=== PATIENT | female | born 1955 | race Caucasian/White ===

== ENCOUNTER 2019-01-30 00:40 | Outpatient (CLI) | payer OTHER, SELFPAY ==
--- NOTE | 2019-01-30 07:15 | DI.US_ITS ---
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 There are no priors for comparison. The liver is normal in size measuring 15.5 cm. in length. There is a normal smooth contour. There is an echogenic solid mass at the dome of the liver measuring 2.6 by 2.4 by 2.2 cm. There is some internal blood flow present. No other hepatic mass is seen. The liver otherwise shows normal echogenicity. Portal venous flow is normal. There is no perihepatic ascites present. IMPRESSION: 1. 2.6 cm. solid echogenic mass in the dome of the liver. This may represent a benign lesion such as a hemangioma. CT scan of the abdomen using the hemangioma protocol should be considered. 2. Otherwise normal appearance of the liver. Normal portal venous flow.
== END 2019-01-30 01:00 ==
PROVIDERS: PCP Family Medicine; Visit Provider Internal Medicine
DX: E88.01 Alpha-1-antitrypsin deficiency (principal); K76.89 Other specified diseases of liver
CPT/HCPCS: 76705

== ENCOUNTER 2019-02-19 08:38 | Outpatient (CLI) | payer OTHER, SELFPAY ==
[2019-02-19 13:54] LABS: CREATININE 0.97 mg/dL (0.55-1.02); Estimated GFR 57.64 (mL/min/1.73m2)
--- NOTE | 2019-02-19 14:17 | DI.CT_ITS ---
SYMPTOMS/DIAGNOSIS: EVALUATE SOLID LIVER MASS SEEN ON ULTRASOUND; CHRONIC OBSTRUCTIVE PULMONARY DISEASE, J44.[address]: CT examination of the abdomen was performed utilizing hemangioma protocol with intravenous infusion of 100 cc of Omnipaque 350. Arterial phase, venous phase and delayed phase imaging were obtained. There is an approximately 24 mm in greatest diameter low attenuation right hepatic lobe lesion as noted on ultrasound. This shows marked nodular peripheral enhancement on arterial phase imaging with progressive enhancement towards the center of the lesion on venous phase and delayed phase imaging with homogeneous enhancement on delayed phase. The findings as described are consistent with hepatic hemangioma pattern. No additional hepatic lesions seen. Spleen and pancreas appear intact. Gallbladder and bile ducts are CT normal. Abdominal aorta is of normal diameter and no major vascular abnormality is seen. No abdominal or pelvic adenopathy seen. Adrenals and kidneys are unremarkable. Visualized lung bases show severe emphysema. CONCLUSION: Findings consistent with right lobe hepatic hemangioma.
[2019-02-19] MEDS: Breeza Beverage 473 ML BTL PO (14:23)
[2019-02-19] MEDS: Omnipaque 350 MG/ML 50 ML BTL PO (14:23)
[2019-02-19] MEDS: Omnipaque 350 MG/ML 100 ML BTL IV (14:27)
== END 2019-02-19 08:58 ==
PROVIDERS: PCP Family Medicine; Visit Provider Internal Medicine
DX: R16.0 Hepatomegaly, not elsewhere classified (principal); D18.03 Hemangioma of intra-abdominal structures; E88.01 Alpha-1-antitrypsin deficiency; J44.9 Chronic obstructive pulmonary disease, unspecified
CPT/HCPCS: 36415; 74160; 82565; J3490; Q9967

== ENCOUNTER 2019-05-22 00:19 | Outpatient (CLI) | payer OTHER, SELFPAY ==
[2019-05-22 11:27] LABS: Absolute Basophil Count 0.05 k/cumm (0.0-0.2); Absolute Eosinophil Count 0.17 k/cumm (0.0-0.7); Absolute Monocyte Count 0.69 k/cumm (0.11-0.7); Absolute Neutrophil Count 5.37 k/cumm (1.2-6.7); Basophils % 0.6; HCT 42.1 % (36.0-46.0); HGB 13.9 g/dL (12.0-15.5); Lymphocytes % 25.1; Mean Corpuscular Hemoglobin 31.3 pg (27.0-33.0); Mean Corpuscular Volume 94.8 fL (80-95); Mean Platelet Volume 8.5 fL (8.0-11.0); Monocytes % 8.2; Neutrophils % 64.1; Platelet Count 441 x1000/uL (130-400); RBC 4.44 m/cumm (4.00-5.20); RBC Distribution Width 13.1 % (11.7-14.6); White Blood Cell Count 8.38 k/cumm (4.4-10.8)
[2019-05-22 12:08] LABS: Iron 126 ug/dL (50-170); Total Iron Binding Capacity 262 ug/dL (250-450); Transferrin Sat 48 % (15-50)
[2019-05-22 12:21] LABS: ALT 27 U/L (14-59); AST 21 U/L (15-37); Albumin 3.9 g/dL (3.4-5.0); Alkaline Phosphatase 70 U/L (46-116); Anion Gap 7.4 mmol/L (3-11); BUN 12 mg/dL (7-18); Bilirubin, Total 0.5 mg/dL (0.2-1.0); CO2 30.6 mmol/L (21.0-32.0); CREATININE 0.94 mg/dL (0.55-1.02); Calcium 9.3 mg/dL (8.5-10.1); Chloride 104 mmol/L (98-107); Estimated GFR 59.58 (mL/min/1.73m2); Ferritin 147 ng/mL (8-252); Glucose 85 mg/dL (74-106); Potassium 4.7 mmol/L (3.5-5.1); Sodium 142 mmol/L (136-145); Total Protein 7.1 g/dL (6.4-8.2)
== END 2019-05-22 00:39 ==
PROVIDERS: PCP Family Medicine; Visit Provider Family Medicine
DX: R53.83 Other fatigue (principal); E04.1 Nontoxic single thyroid nodule; E88.01 Alpha-1-antitrypsin deficiency; R06.02 Shortness of breath; J44.9 Chronic obstructive pulmonary disease, unspecified; C44.92 Squamous cell carcinoma of skin, unspecified
CPT/HCPCS: 36415; 80053; 82728; 83540; 83550; 84443; 85025

== ENCOUNTER 2019-09-03 17:09 | Outpatient (CLI) | payer OTHER, SELFPAY ==
[2019-09-03 18:29] VITALS: PULSE 114; PULSE 117; PULSE 121; PULSE 122; RESP 20; RESP 22; RESP 26; RESP 28; RESP 32; O2SAT 86; O2SAT 91; O2SAT 93; O2SAT 95
== END 2019-09-03 17:29 ==
PROVIDERS: PCP Family Medicine; Visit Provider Family Medicine
DX: J44.9 Chronic obstructive pulmonary disease, unspecified (principal); E88.01 Alpha-1-antitrypsin deficiency
CPT/HCPCS: 94618

== ENCOUNTER 2020-02-17 01:07 | Outpatient (CLI) | payer OTHER, SELFPAY ==
--- NOTE | 2020-02-17 | DI.CT_ITS ---
EXAM: CT CHEST WO CLINICAL HISTORY: LUNG DISEASE J44.9, F/U LUNG NODULE TECHNIQUE: Imaging Protocol: Axial computed tomography images with coronal and sagittal reformatted images were created and reviewed CONTRAST MATERIAL: Noncontrast COMPARISON: CT CT CHEST WO CONTRAST from 02/12/2019 from [facility]. FINDINGS: Exam is mildly limited by patient motion. Tracheobronchial tree: Patent where visualized. Mediastinum and Sarahy: No dominant adenopathy or fluid collection. Pulmonary parenchyma: Severe emphysematous changes are noted throughout. There has been no change in an ovoid density in the left upper lobe with central calcification. The findings are consistent wit h an area of scarring or granuloma. No new nodules are identified. There are no infiltrates. Pleura: No effusion or pneumothorax. Heart: The heart is not dilated. Mild coronary artery calcifications are seen. Prominence of the pulm onary arteries, consistent with pulmonary hypertension. Aorta: Thoracic aorta non-dilated. Upper abdomen: Stable low-density area in the upper portion of the liver. Lesion was felt to repres ent a hemangioma previous imaging. Lymph nodes: Within normal limits. Bones: Normal. Soft tissues: Unremarkable. IMPRESSION: Stable appearance of left upper lobe nodule, consistent with area of scarring or granuloma. Severe u nderlying emphysematous changes. RADIATION DOSE DELIVERED: Total DLP DATA REPOSITORY: All CT scans at this facility are submitted to the National Radiology Data Registry (NRDR) Dose Index Registry (DIR) with the [employer] (A[employer]). RADIATION OPTIMIZATION: All CT scans at this facility use at least one of these dose optimization te chniques: automated exposure control; mA and/or kV adjustment per patient size (includes targeted exa ms where dose is matched to clinical indication); or iterative reconstruction.
== END 2020-02-17 01:27 ==
PROVIDERS: PCP Family Medicine; Visit Provider Internal Medicine
DX: J44.9 Chronic obstructive pulmonary disease, unspecified (principal); R91.1 Solitary pulmonary nodule
CPT/HCPCS: 71250

== ENCOUNTER 2020-11-21 11:47 | Outpatient (REF) | payer OTHER, SELFPAY ==
[2020-11-21 12:59] LABS: Abs Immature Grans 0.01 10^3/uL (0.0-0.06); Absolute Basophil Count 0.06 10^3/uL (0.0-0.2); Absolute Eosinophil Count 0.07 10^3/uL (0.0-0.7); Absolute Lymphocyte Count 1.92 10^3/uL (1.2-3.4); Absolute Monocyte Count 0.54 10^3/uL (0.1-0.8); Absolute Neutrophil Count 4.43 10^3/uL (1.2-6.7); Basophils % 0.9; HGB 15.2 g/dL (11.2-15.7); Immature Grans % 0.1; Lymphocytes % 27.3; MCH 31.5 pg (27.0-33.0); MCHC 32.3 % (32.0-36.0); MCV 97.3 fL (80-95); MPV 9.1 fL (8.0-11.0); Monocytes % 7.7; Nucleated RBC 0 %; Platelet Count 418 10^3/uL (130-400); RBC 4.83 10^6/uL (3.93-5.22); RDW 12.3 % (11.7-14.6); RDW-SD 44.2 fL; WBC 7.03 10^3/uL (4.4-10.8)
[2020-11-21 13:06] LABS: Iron 134 ug/dL (50-170); Total Iron Binding Capacity 277 ug/dL (250-450); Transferrin Sat 48 % (15-50)
[2020-11-21 13:22] LABS: ALT 33 U/L (14-59); AST 23 U/L (15-37); Albumin 4.3 g/dL (3.4-5.0); Alkaline Phosphatase 84 U/L (46-116); Anion Gap 8.3 mmol/L (3-11); BUN 17 mg/dL (7-18); Bilirubin, Total 0.5 mg/dL (0.2-1.0); CO2 30.7 mmol/L (21.0-32.0); CREATININE 0.7 mg/dL (0.55-1.02); Chloride 104 mmol/L (98-107); Ferritin 184 ng/mL (8-252); Glucose 95 mg/dL (74-106); Potassium 4.8 mmol/L (3.5-5.1); Sodium 143 mmol/L (136-145); TSH 2.04 uIU/mL (0.36-3.74); Total Protein 7.9 g/dL (6.4-8.2)
[2020-11-21 13:30] LABS: Amylase 55 U/L (25-115); Lipase 114 U/L (73-393)
== END 2020-11-21 11:48 | disposition home or self-care (01) ==
LOC: NCHCN 11:47
PROVIDERS: PCP Family Medicine; Visit Provider Family Medicine
DX: R10.9 Unspecified abdominal pain (principal); K62.5 Hemorrhage of anus and rectum; E04.1 Nontoxic single thyroid nodule
CPT/HCPCS: 80053; 83690; 82150; 82728; 83540; 83550; 84443; 85025

== ENCOUNTER 2020-11-23 00:45 | Outpatient (CLI) | payer OTHER, SELFPAY ==
--- NOTE | 2020-11-23 07:00 | DI.RAD_ITS ---
Exam(s) RF BARIUM SWALLOW EXAM: RF BARIUM SWALLOW CLINICAL HISTORY: dysphagia,R13.10 TECHNIQUE: 2D and realtime digital imaging was performed. CONTRAST MATERIAL: Oral barium Oral water soluble contrast was administered. COMPARISON: No exams were available for comparison FINDINGS: This esophagram was performed both standing and recumbent using both single and double-contrast techn ique. Swallowing mechanism is grossly intact. There was no aspiration evident on this study. There is a s lightly hypertense upper esophageal sphincter noted. There is no Zenker's diverticulum. No obvious fixed lesions evident in the esophagus. Esophagus is not dilated. Distally there is no evidence of Schatzki ring nor fixed lesion or hiatal hernia. There is no obvious reflux demonstrated on today's study. IMPRESSION: Slightly hypertense upper esophageal sphincter. No fixed lesions in the esophagus and GE junction re gion. No hiatal hernia. No obvious GE reflux demonstrated. RADIATION DOSE DELIVERED: Destinyr= mGy
[2020-11-23] MEDS: Barium Sulfate 60% W/V 355 ML BTL PO (09:45)
[2020-11-23] MEDS: Simethicone/Sod Bicarb/Cit Ac, 4 gram PACKET 1 PACKET PO (09:46)
== END 2020-11-23 01:05 ==
PROVIDERS: PCP Family Medicine; Visit Provider Family Medicine
DX: K22.8 Other specified diseases of esophagus (principal)
CPT/HCPCS: 74221; J3490

== ENCOUNTER → 2021-01-12 11:18 | Outpatient (BNVA) | payer OTHER, SELFPAY | PROVIDERS: PCP Family Medicine; Referring Provider Family Medicine; Visit Provider Surgery | DX: R13.10 Dysphagia, unspecified (principal); K52.9 Noninfective gastroenteritis and colitis, unspecified; J44.9 Chronic obstructive pulmonary disease, unspecified; Z87.891 Personal history of nicotine dependence | CPT/HCPCS: 99202; 99203 ==

== ENCOUNTER 2021-01-20 10:59 | Day surgery (SDC) | payer OTHER, SELFPAY ==
--- NOTE | 2021-01-20 10:17 | PDOC.DSDIS_ITS ---
Discharge Plan Disposition Patient Disposition: HOME Condition: Good Discharge Details Reason For Visit: colon scope Attending Provider: Olga Lidia Cordova Primary Care Provider: Nisreen Marte Home Meds and New Rx's Prescriptions: Continued multivitamin Tablet 1 tab PO DAILY RF: 0 ascorbate calcium (vitamin C) 500 mg tablet 500 mg PO BID RF: 0 Hx-Q5-tkl-natk-ivw-hppw-bor 1 EACH tablet 1 ea PO BID RF: 0 PRESERVISION SOFTGEL 1 EACH capsule 1 ea PO DAILY RF: 0 magnesium oxide 250 MG tablet 250 mg PO DAILY RF: 0 melatonin 10 MG tablet 10 mg PO HS RF: 0 pravastatin 10 mg tablet 10 mg PO DAILY Qty: 90 RF: 4 zolpidem 5 mg tablet 5 mg PO HS PRN (Reason: insomnia) Qty: 90 RF: 2 Trelegy Ellipta 100-62.5-25 mcg blister with device 1 inh IH DAILY Qty: 180 RF: 4 valacyclovir 500 mg tablet 500 mg PO DAILY Qty: 90 RF: 4 Discharge Instructions Instructions: Rectal Prolapse (GEN) Additional Instructions: DSU Colonoscopy Post- Op Instructions Instructions for Everyone who is given Anesthesia: For your safety, please do the following for the next twenty-four (24) hours: *Do Not operate a motor vehicle (car, truck, motorcycle, etc.) *Do Not drink alcoholic beverages or use any recreational drugs for the first 24 hours or while taking pain medications. The medications in your body may have a reaction that can be dangerous. *Do Not make any important decisions or sign any important papers. Findings: Rectal prolapse Follow up:w/ PCP Consider referral to colo-rectal surgery at [facility] if this impairs your daily living. 1. No lifting over 20 pounds or strenuous activity for the first 24 hours after your procedure. After 24 hours there are no restrictions on your activity but you may feel fatigued for a few days. 2. After you arrive home you may have a light meal and return to your normal diet as you can tolerate it without feeling sick to your stomach. 3. You may have a bloated, gaseous feeling in your belly (abdomen) after a colonoscopy. Passing gas and belching will help. Walking or lying down on your left side with your knees flexed may relieve the discomfort. Call the office at [phone] (Office) or [phone] (Hospital) right away if you notice any of the following: a.Vomiting of blood or ?coffee ground stools?. b.Rectal bleeding 1Tbsp, blood clots or continuous bleeding. c.Severe belly (abdominal) pain. d.A hard distended belly (abdomen) and an inability to pass gas. 4. Please don?t expect to have a normal BM (bowel movement) for 2-3 days after your procedure. 5. If there are questions regarding the findings of your procedure, please contact your doctor 6. If you are unable to contact your doctor with a problem, contact the hospital at [phone]. 7. Continue all your regular medications unless directed otherwise. I understand the above instructions and have no questions. Signature of Patient or Adult Escort Name of Responsible Adult Escort Signature of Nurse Date/Time Activity:: see above Diet:: see above Discharge Orders Discharge Orders: Discharge Order (Routine); Ordered 01/19/21 Ordered By: Olga Lidia Cordova DS: Diagnosis Discharge Diagnosis (1) Llfii-0-tbkmrholrkn deficiency: Status: Acute (2) Incomplete rectal prolapse: Status: Acute (3) Pelvic floor weakness in female: Status: Acute
--- NOTE | 2021-01-20 10:17 | W.COLOREPORT ---
Date of service: 01/20/21 Time of Service: 10:17 Colonoscopy Report Date of procedure: 01/20/21 Pre-op diagnosis general: ddiarrhea and rectal bleeding Post-op diagnosis procedure note: other (partial rectal prolaspse ) Surgeon: Olga Lidia Cordova Anesthesia Type: General:No Airway Estimated blood loss (mL): 1 Pathology: other Complications: None Disposition: same day Prep: Miralax/Dulcolax Retraction Time: 9 Procedure Description: After informed consent was obtained the patient was taken to the procedure room and placed in a left decubitous position. Monitors were applied and a time out was done. The patients name, date of , procedure, allergies to medications and metal in their body was reviewed. The patient was then sedated. Once sedated and comfortable a rectal exam was done. Incomplete rectal prolaspe from 1-6oclock potion. No enterocele. She has significant vaginal atrophy and laxity of the tissues of the pelvic floor. Internal exam revealed a decreased sphincter tone and no palpable masses. The scope was then introduced and retrofelexed. no internal hemorrhoids were identified. The scope was then advanced to the cecum w/out difficulty. The TI and appendiceal orifice were identified. The prep was good. The scope was then slowly retracted over 9 minutes back into the rectum. There were no polyps, AVMs, or diverticula apparent. Biopsies were taken at cecum, 80 cm, 30 cm and the rectum, because of chronic diarrhea. All specimens are retrieved and no bleeding is noted. The scope was removed and the patient was woken up and taken back to Same day surgery in stable condition. The patient tolerated the procedure well and there were no immediate complications. Follow up: The patient does not require any further screening colonoscopies, unless they develop changes in bowel habits or other new gastrointestinal complaints.
[2021-01-20 11:18] VITALS: BP 137/88; PULSE 96; RESP 18; TEMP 36.7; O2SAT 95
[2021-01-20] MEDS: Lactated Ringers 1,000 ML 80 ML IV (11:43)
--- NOTE | 2021-01-20 12:12 | W.ANESPRE ---
General Info Date of Service Date Performed: 01/20/21 Height: 5 ft 1 in Weight: 43.9 kg Body Mass Index (BMI): 18.3 Surgical Procedure: Operation Date: 01/20/21 12:05 Proposed Procedures Side Surgeon richard Cordova, DO Meds Allergies and Home Medications Allergies Allergy/AdvReac Type Severity Reaction Status Date / Time No Known Allergies Allergy Unverified 01/20/21 11:09 Home Medication Medication Instructions Recorded Uq-R0-bhc-dobs-app-dcvd-bor 1 ea PO BID 08/13/12 Preservision Softgel 1 ea PO DAILY 08/13/12 magnesium oxide 250 mg PO DAILY 03/20/17 melatonin 10 mg PO HS 03/20/17 pravastatin 10 mg tablet 10 mg PO DAILY #90 tab 03/21/20 zolpidem 5 mg tablet 5 mg PO HS PRN #90 mg 11/25/20 fluticasone fur. 100 mcg-umeclid 1 inh IH DAILY #180 each 12/27/20 62.5 mcg-vilant 25 mcg inhalat.powder valacyclovir 500 mg tablet 500 mg PO DAILY #90 tab 12/27/20 ascorbate calcium (vitamin C) 500 500 mg PO BID 01/12/21 mg tablet multivitamin 1 tab PO DAILY 01/12/21 Current Visit Medications: Current Medications Generic Name Dose Route Start Last Admin Trade Name Freq PRN Reason Stop Dose Admin Hyoscyamine Sulfate 0.125 mg 01/19/21 18:08 Hyoscyamine 0.125 Mg Sl/Oral/Chew SL DIRECTED PRN Ringer's Solution 1,000 mls @ 80 mls/hr 01/20/21 06:00 01/20/21 11:43 IV 02/18/21 23:59 80 mls/hr INFUSION NIKI Administration IV Miscellaneous Supplies 1 each 01/20/21 06:00 Iv Access IV 02/18/21 23:59 DIRECTED NIKI Ondansetron HCl 4 mg 01/19/21 18:08 Ondansetron 4 Mg/2 Ml Vial IVP Q4H PRN PRN Nausea / Vomiting Sodium Chloride 0 ml 01/20/21 06:00 Normal Saline Flush 10 Ml Syr IV 02/18/21 23:59 PRN PRN Sodium Chloride 0 ml 01/20/21 06:00 Normal Saline 10 Ml Vial IJ 02/18/21 23:59 DIRECTED PRN Sterile Water 0 ml 01/20/21 06:00 Water,Injection,Sterile 10 Ml Vial IJ 02/18/21 23:59 DIRECTED PRN PFSH Active Problems Active Problems: Problem Status Onset Code Jonfk-3-mpicflqsgtz deficiency 02/10/14 E88.01 Depressive disorder F32.9 Herpes simplex B00.9 Hyperlipidemia 09/01/12 E78.5 Imbalance 02/28/17 R26.89 Insomnia G47.00 Osteoporosis M81.0 Squamous cell carcinoma 01/23/16 C44.92 Thyroid nodule 05/24/16 E04.1 Vertigo 05/24/16 R42 Pain of hand M79.643 Status post laparoscopic hysterectomy Z90.710 Premature beats I49.49 History of tobacco use Z87.891 Dermatitis L30.9 Acquired trigger finger 05/11/13 M65.30 Dysphagia R13.10 Chronic diarrhea of unknown origin K52.9 COPD (chronic obstructive pulmonary disease) J44.9 Medical History Medical History (Updated 01/20/21 @ 11:08 by Nitesh Juan) COPD (chronic obstructive pulmonary disease) High cholesterol Surgical History Surgical History Colonoscopy - IV Sedation 2010; neg H/O shoulder surgery (~1979) Hysterectomy, Laproscopic Has ovaries Tobacco Smoking/Tobacco Use Status: Former Tobacco Use Tobacco: How many years used: 20 Passive smoking exposure: Yes Second hand exposure: Yes Alcohol Alcohol Intake: former Substance Use Substance use: Never Substance use type: does not use Vital Signs and Lab Results Vital Signs Most Recent Vital Signs in EMR: Most Recent Vital Signs Temp Pulse Resp BP Pulse Ox 36.7 C 96 H 18 137/88 95 01/20/21 11:18 01/20/21 11:18 01/20/21 11:18 01/20/21 11:18 01/20/21 11:18 Lab Results Blood Type / Crossmatch: No Data to Display Complete Blood Count: No Data to Display Complete Metabolic Panel: No Data to Display Liver Function Panel: No Data to Display Coagulation Panel: No Data to Display Cardiac Panel: No Data to Display Arterial Blood Gas: No Data to Display Venous Blood Gas: No Data to Display Pancreas Panel: No Data to Display Thyroid Panel: No Data to Display Infectious Disease: No Data to Display Blood Cultures: No Data to Display Toxicology Panel: No Data to Display Anesthesia Assessment and Plan Anesthesia History Personal History: No History of Anesthesia Complications Family History: No Family History of Anesthesia Complications Exercise Tolerance Exercise Tolerance: Metabolic Equivalents<4 Pertinent Negatives Pertinent Negatives: No Symptoms of GERD, No Major Cardiovascular Symptoms or Complaints and No History of CVA/TIA Cardiac & Pulmonary Exam Cardiac Exam: Normal S1/S2 Heart Sounds Pulmonary Exam: Clear Bilateral Breath Sounds Airway Exam Known Difficult Airway: No Mallampati Class: 2 Mouth Opening: Narrow (< 3cm) Thyromental Distance: Greater than 3 cm Neck Range of Motion: Full ROM Neck Circumference: Normal Teeth Condition: Normal Dentition and Removable Dentures/Plates Lower ASA Classification ASA Score: ASA 3 Emergency Case?: No NPO Status NPO Status: NPO Clears >2 hours, Solids >8 hours Anesthesia Plan Resuscitation Status: Full Code Anesthesia Technique: General Anesthesia Airway Planned: Natural Airway Monitors Used: Standard Monitors
[2021-01-20 12:16] VITALS: BMI 18.3
--- NOTE | 2021-01-20 13:37 | BOWEL_PTH ---
PATIENT: Mariah Nobles LOC: [facility] U#:[id number] AGE/SX: 65/F ROOM: RE01/20/[address]: Olga Lidia Cordova : 1955 BED: DIS: 01/20/2021 SPEC #: [id number] RECD: 01/20/21 16:40 STATUS: CARLOS REPhilippe #: [id number] RENÉ: 01/20/21 13:[address]: Olga Lidia Cordova DEPT: Surgical Specimen RECD BY: Temi Thakkar ENTERED: 01/20/21 16:41 SP TYPE: Bowel OTHR DR: Nisreen Marte MD Tissues: 1 - BIOPSY BOWEL 2 - BIOPSY BOWEL 3 - BIOPSY BOWEL 4 - BIOPSY BOWEL Procedures: SPECIAL STAIN 2 GROSS AND MICRO LEVEL 4 Comments: [id number]
[2021-01-20 13:50] VITALS: BP 121/82; PULSE 104; RESP 14; TEMP 36.6; O2SAT 95
--- NOTE | 2021-01-20 13:52 | W.ANESPOSTOP ---
Postoperative Evaluation Date, Time and Location Date Performed: 01/20/21 Time Performed: 13:52 Patient Location: Day Surgery Unit Vital Signs Most Recent Imported Vital Signs: Most Recent Vital Signs Temp Pulse Resp BP Pulse Ox 36.7 C 96 H 18 137/88 95 01/20/21 11:18 01/20/21 11:18 01/20/21 11:18 01/20/21 11:18 01/20/21 11:18 Most Recent Manually Entered Vital Signs: Adult Blood Pressure: 121/82 Heart Rate: 106 Respirations: 12 Oxygen Saturation (%): 99 Temperature (C): 36.3 C Pain Score (0-10 Scale): 0 Pain Score Most Recent Pain Score: Most Recent Pain Score Pain Level 0 01/20/21 11:18 Assessment Mental Status: Awake (Alert & Oriented to Patient Baseline) Airway and Respiratory Function: Patent airway with normal (patient baseline) respiratory exam Cardiovascular Function: Hemodynamically Stable Hydration Status: Adequately Hydrated Nausea & Vomiting: No Nausea or Vomiting Pain: Pt. Denies Any Pain Peripheral Nerve Block: Patient did not receive a nerve block
[2021-01-20 13:56] VITALS: BP 121/82; PULSE 106; RESP 12; TEMPC 36.3; O2SAT 99
[2021-01-20 14:20] VITALS: BP 145/88; PULSE 99; RESP 16; TEMP 36.5; O2SAT 93
== END 2021-01-20 14:45 | disposition home or self-care (01) ==
PROVIDERS: PCP Family Medicine; Visit Provider Surgery
PROC: 0DJD8ZZ Inspection of Lower Intestinal Tract, Via Natural or Artificial Opening Endoscopic (ICD-10-PCS; CPT 45378; principal; 2021-01-20 12:00)
DX: K62.5 Hemorrhage of anus and rectum (principal); K62.3 Rectal prolapse; R19.7 Diarrhea, unspecified; E88.01 Alpha-1-antitrypsin deficiency
CPT/HCPCS: 45380; 88305; 88313; J2001

== ENCOUNTER 2021-01-29 17:40 | Emergency (ER) | payer OTHER, SELFPAY ==
--- NOTE | 2021-01-29 17:45 | DI.RAD_ITS ---
Exam(s) XR WRIST LT LIMITED EXAM: XR WRIST LT LIMITED CLINICAL HISTORY: Fall, Swelling R/O fracture. TECHNIQUE: 2D digital imaging was performed. COMPARISON: No exams were available for comparison FINDINGS: There is a mildly comminuted and impacted fracture of distal radius. Mild dorsal There is also fracture of the ulnar styloid process. Scapholunate distance is normal. No obvious ca rpal dislocation. IMPRESSION: Fractures of distal radius and ulnar styloid. DATA REPOSITORY: RADIATION DOSE DELIVERED:
--- NOTE | 2021-01-29 17:45 | DI.RAD_ITS ---
Exam(s) XR HIP LT COMPLETE AP PELVIS EXAM: XR HIP LT COMPLETE AP PELVIS CLINICAL HISTORY: Fall R/O Fracture. TECHNIQUE: 2D digital imaging was performed. COMPARISON: No exams were available for comparison FINDINGS: There is no evidence of fracture of the pelvis and hips. Sacroiliac joints and symphysis pubis appea r unremarkable. IMPRESSION: No fracture evident. DATA REPOSITORY: RADIATION DOSE DELIVERED:
[2021-01-29 17:46] VITALS: BP 172/89; PULSE 111; RESP 20; TEMP 36.7; O2SAT 92
--- NOTE | 2021-01-29 17:54 | ED.GENADUL_ITS ---
Discharge Plan Disposition Patient Disposition: HOME Condition: Stable Discharge Details Clinical Impression: Fracture of left wrist, Fall (on) (from) other stairs and steps, initial encounter Primary Care Provider: Nisreen Marte ED Provider: Rosy Lundy Home Meds and New Rx's Prescriptions: No Action multivitamin Tablet 1 tab PO DAILY RF: 0 ascorbate calcium (vitamin C) 500 mg tablet 500 mg PO BID RF: 0 Qa-P9-hob-mkod-opy-xxkw-bor 1 EACH tablet 1 ea PO BID RF: 0 PRESERVISION SOFTGEL 1 EACH capsule 1 ea PO DAILY RF: 0 magnesium oxide 250 MG tablet 250 mg PO DAILY RF: 0 melatonin 10 MG tablet 10 mg PO HS RF: 0 pravastatin 10 mg tablet 10 mg PO DAILY Qty: 90 RF: 4 zolpidem 5 mg tablet 5 mg PO HS PRN (Reason: insomnia) Qty: 90 RF: 2 Trelegy Ellipta 100-62.5-25 mcg blister with device 1 inh IH DAILY Qty: 180 RF: 4 valacyclovir 500 mg tablet 500 mg PO DAILY Qty: 90 RF: 4 Banatrol Plus Powder In Packet 0.5 packet PO DAILY Qty: 75 RF: 12 Discharge Instructions Instructions: Wrist Fracture in Adults (ED), Splint Care (ED) Additional Instructions: Keep splint on until you follow-up with orthopedics. Dr. Shook will call you to discuss further options. If the splint feels too tight or your fingers turn cold blue numb or tingly you may loosen the Ben wrap. If you continue to have pain or problems with circulation please return to the emergency department. Keep extremity elevated when sitting or lying down above the level of your heart. Wear sling when up and about. Take the Percocet as needed for moderate to severe pain. Take it with food no driving. Please take Tylenol or Ibuprofen with food every 4-6 hours as needed for pain and swelling. Referrals: William Shook MD [ [facility] STAFF PHYSICIAN] - 3 days Medical Decision Making 65-year-old female with a past medical history of COPD, hyperlipidemia presents to the ER with chief complaint of left wrist left pelvis pain status post a mechanical fall prior to arrival. Patient states that she was helping her elderly father into the house when he lost his balance falling on top of her. She fell down backwards down 2 stairs with a FOOSH type injury landing on her buttocks. She denies hitting her head or loss of consciousness no neck or midline spine pain. She is complaining of left-sided pelvic pain and left wrist pain. She is alert and oriented x4 upon initial exam. She does have some swelling noted to the medial dorsum of her left wrist. No obvious deformity distal CMS intact. Imaging protocol: XR Left wrist. Views: 1 or 2 views. COMPARISON: US LEFT EXTREMITY ULTRASOUND ([id number]) 05/16/2015 11:14 AM FINDINGS: Bones/joints: There is diffuse osteopenia. There is a comminuted acute fracture through the distal left radial metaphysis with impaction of the fracture fragments and mild dorsal tilt of the distal radial articular surface. There is also an acute fracture through the styloid process of the distal left ulna. Soft tissues: There is soft tissue swelling at the wrist. IMPRESSION: 1. Acute comminuted fracture through the distal left radial metaphysis with impaction of the fracture fragments and dorsal tilt of the distal radial articular surface. 2. Acute fracture through the styloid process of the left ulna. Thank you for allowing us to participate in the care of your patient. Dictated and Authenticated by: Demetrius Longo MD Imaging protocol: XR Left hip. Views: 2 or 3 views hip with pelvis when performed. COMPARISON: No relevant prior studies available. FINDINGS: Bones/joints: An AP view of the pelvis is submitted with a coned-down lateral view of the left hip. No acute fracture or dislocation is seen. Soft tissues: No gross soft tissue abnormality is demonstrated. Gastrointestinal tract: There is retained fecal material and gas in the visualized portion of the colon and rectum. Scattered tiny radiodensities projecting over the pelvis probably represent ingested material within the bowel IMPRESSION: No acute fracture or dislocation seen Thank you for allowing us to participate in the care of your patient. Dictated and Authenticated by: Demetrius Longo MD [id number]: Dr. Boone torres. Consult with Dr. Shook, he was able to personally view the x-rays he does recommend a resting volar splint and follow-up on Saturday or Saturday. Discussed follow-up care with patient and family who verbalized understanding. Splint applied as noted in procedure note above. Patient tolerated well. She received 2 Percocets while here in the department patient was sent home with 3 Percocet tablets. Discussed splint care and follow-up and strict return instructions, verbalized understanding. HPI General Mode of arrival: ambulatory . Date/Time Provider Initiated Documentation: 01/29/21 17:49 . Limitations to Documentation: no limitations . Information obtained by: patient and RN notes reviewed . HPI Narrative: 65-year-old female with a past medical history of COPD, hyperlipidemia presents to the ER with chief complaint of left wrist left pelvis pain status post a mechanical fall prior to arrival. Patient states that she was helping her elderly father into the house when he lost his balance falling on top of her. She fell down backwards down 2 stairs with a FOOSH type injury landing on her buttocks. She denies hitting her head or loss of consciousness no neck or midline spine pain. She is complaining of left-sided pelvic pain and left wrist pain. She is alert and oriented x4 upon initial exam. She does have some swelling noted to the medial dorsum of her left wrist. No obvious deformity distal CMS intact. Related Data Home Medications Medication Instructions Recorded Confirmed [id number]-wshg-ukd-kvfh-bor 1 ea PO BID 08/13/12 01/29/21 Preservision Softgel 1 ea PO DAILY 08/13/12 01/29/21 magnesium oxide 250 mg PO DAILY 03/20/17 01/29/21 melatonin 10 mg PO HS 03/20/17 01/29/21 pravastatin 10 mg tablet 10 mg PO DAILY #90 tab 03/21/20 01/29/21 zolpidem 5 mg tablet 5 mg PO HS PRN #90 mg 11/25/20 01/29/21 fluticasone fur. 100 mcg-umeclid 1 inh IH DAILY #180 each 12/27/20 01/29/21 62.5 mcg-vilant 25 mcg inhalat.powder valacyclovir 500 mg tablet 500 mg PO DAILY #90 tab 12/27/20 01/29/21 ascorbate calcium (vitamin C) 500 500 mg PO BID 01/12/21 01/29/21 mg tablet multivitamin 1 tab PO DAILY 01/12/21 01/29/21 banana vxjwmg-w-vraduxkaykhop. 0.5 packet PO DAILY #75 ea 01/20/21 01/29/21 [Banatrol Plus] Previous Rx's Medication Instructions Recorded pravastatin 10 mg tablet 10 mg PO DAILY #90 tab 03/21/20 zolpidem 5 mg tablet 5 mg PO HS PRN #90 mg 11/25/20 fluticasone fur. 100 mcg-umeclid 1 inh IH DAILY #180 each 12/27/20 62.5 mcg-vilant 25 mcg inhalat.powder valacyclovir 500 mg tablet 500 mg PO DAILY #90 tab 12/27/20 banana jiqdym-y-zgkrpmjbdiwox. 0.5 packet PO DAILY #75 ea 01/20/21 [Banatrol Plus] Allergies Allergy/AdvReac Type Severity Reaction Status Date / Time No Known Allergies Allergy Unverified 01/29/21 17:50 General Stated Complaint: Orthopedic ARIANA: 3 Review of Systems Narrative: Constitutional: Negative for weight loss, alert and oriented, well groomed, normal body habitus, appears comfortable. HEENT: Denies headaches, blurry vision, nasal discharge, sore throat, trouble swallowing. Chest: Denies chest pain, palpitations, irregular rhythm, hypertension. Respiratory: Denies Shortness of breath, cough, hemoptysis. GI: Denies abdominal pain, nausea, vomiting, diarrhea, constipation. : Denies dysuria, hematuria, flank pain, rectal bleeding. Neuro: Denies dizziness, blurry vision, weakness, syncope, headache or facial numbness. Musculoskeletal: Left wrist pain left pelvis pain. Hematologic: Denies easy bruising, intolerance to heat or cold, hair loss. [facility] Medical History COPD (chronic obstructive pulmonary disease) High cholesterol Surgical History Colonoscopy - IV Sedation 2010; neg H/O shoulder surgery (~1979) Hysterectomy, Laproscopic Has ovaries Family History Mother Essential hypertension Hyperlipidemia Father Essential hypertension Heart disease Hyperlipidemia Depression Sister Depression Sister No problems noted. Brother No problems noted. Son No problems noted. Son No problems noted. Social History Smoking/Tobacco Use Status: Former Tobacco Use Quit Date: 09/24/96 Tobacco: How many years used: 20 Second Hand Exposure: Yes Smoking risk assessment performed?: Yes Alcohol Intake: former Drug use: Never Substance use type: does not use Pets and animals: No Duration: 15-30 minutes/day Frequency: decline to answer Christine/Mosque: Mu-Ism Special christine needs: No Do you feel safe at home: Yes Do you feel safe in your relationship?: Yes Exam Narrative Exam Narrative: General: Well Developed, Awake and Alert, conversant. Skin: Warm and Dry HEENT: Head: No palpable deformities, Normocephalic Eyes: Pupils PERRLA, EOM's intact. No periorbital eccymosis or step off Ears: Canal patent. Tympanic membranes are clear . No luque's sign, no hemptympanum. Nose/Face: Atraumatic. Facial bones nontender to palpation and stable with manipulation. Mouth/Throat: No intraoral trauma. Teeth and mandible are intact. Neck: No midline tenderness, no step off, no deformity to palpation of C-spine. Trachea midline. Chest: No surface trauma. Nontender without crepitus or deformity. Lungs clear to ausculatation bilaterally. Heart: RRR, no rubs, murmurs or gallop. Abdomen: No abrasions, ecchymosis, or surface trauma. Nondistended. Nontender to palpation no guarding, rebound, or rigidity. Pelvis: stable to compression. Femoral pulses strong and equal tenderness with palpation to the posterior aspect of the left side. Extremities: No surface trauma. Sensation intact. Peripheral pulses intact and equal. Swelling noted to the dorsal medial aspect of the left wrist. Neuro: ANO x4, GCS 15, cranial nerves II through XII intact. Motor and sensory exam nonfocal. Reflexes are symmetric. Course Vital Signs Vital signs: Vital Signs Temperature 36.7 C 01/29/21 17:46 Pulse 111 H 01/29/21 17:46 Respiratory Rate 20 01/29/21 17:46 Blood Pressure 172/89 H 01/29/21 17:46 Pulse Oximetry 92 01/29/21 17:46 Temperature 36.7 C 01/29/21 17:46 Temperature Source Skin 01/29/21 17:46 Pulse 111 H 01/29/21 17:46 Respiratory Rate 20 01/29/21 17:46 Blood Pressure 172/89 H 01/29/21 17:46 Blood Pressure Position Sitting 01/29/21 17:46 Pulse Oximetry 92 01/29/21 17:46 Oxygen Delivery Method Room Air 01/29/21 17:46 Oxygen Flow Rate 0 01/29/21 17:46 Pain Level 10 01/29/21 17:46 Procedures Orthopedic Splinting/Casting Injury #1: Side: left Upper Extremity Injury Location: wrist Upper Extremity Immobilizer: volar splint and Ben wrap Other Orthopedic Equipment: other (Sling) Additional Comments: Ortho glass volar splint applied CMS intact post application, Patient tolerated well.
[2021-01-29] MEDS: Ondansetron O.D.T. 4 MG TABEF PO (18:01)
[2021-01-29] MEDS: oxyCODONE 5 mg/Acetaminophen 325 mg TAB 1 TAB PO ×2 (18:01→19:00)
--- NOTE | 2021-01-29 18:40 | DI.VRAD_ITS ---
PROCEDURE INFORMATION: Exam: XR Left Wrist Exam date and time: 01/29/2021 5:55 PM Age: 65 years old Clinical indication: Injury or trauma; Fall; Blunt trauma (contusions or hematomas); Wrist; Left TECHNIQUE: Imaging protocol: XR Left wrist. Views: 1 or 2 views. COMPARISON: US LEFT EXTREMITY ULTRASOUND ([id number]) 05/16/2015 11:14 AM FINDINGS: Bones/joints: There is diffuse osteopenia. There is a comminuted acute fracture through the distal left radial metaphysis with impaction of the fracture fragments and mild dorsal tilt of the distal radial articular surface. There is also an acute fracture through the styloid process of the distal left ulna. Soft tissues: There is soft tissue swelling at the wrist. IMPRESSION: 1. Acute comminuted fracture through the distal left radial metaphysis with impaction of the fracture fragments and dorsal tilt of the distal radial articular surface. 2. Acute fracture through the styloid process of the left ulna. Dictated and Authenticated by: Demetrius Longo MD. Ordering:MARTINEZ Gallegos MD
--- NOTE | 2021-01-29 18:41 | DI.VRAD_ITS ---
PROCEDURE INFORMATION: Exam: XR Left Hip Exam date and time: 01/29/2021 5:55 PM Age: 65 years old Clinical indication: Hip pain; Left hip TECHNIQUE: Imaging protocol: XR Left hip. Views: 2 or 3 views hip with pelvis when performed. COMPARISON: No relevant prior studies available. FINDINGS: Bones/joints: An AP view of the pelvis is submitted with a coned-down lateral view of the left hip. No acute fracture or dislocation is seen. Soft tissues: No gross soft tissue abnormality is demonstrated. Gastrointestinal tract: There is retained fecal material and gas in the visualized portion of the colon and rectum. Scattered tiny radiodensities projecting over the pelvis probably represent ingested material within the bowel IMPRESSION: No acute fracture or dislocation seen Dictated and Authenticated by: Demetrius Longo MD. Ordering:MARTINEZ Gallegos MD
[2021-01-29 18:54] VITALS: BP 157/79; PULSE 102; RESP 12; O2SAT 91
[2021-01-29 18:56] VITALS: O2SAT 93
[2021-01-29] MEDS: oxyCODONE 5 mg/Acetaminophen 325 mg TAB 3 TAB PO (19:43)
== END 2021-01-29 19:50 | disposition home or self-care (01) ==
PROVIDERS: Emergency Provider Registered Nurse Emergency; PCP Family Medicine
DX: S62.102A Fracture of unspecified carpal bone, left wrist, initial encounter for closed fracture (principal); R10.2 Pelvic and perineal pain; W10.8XXA Fall (on) (from) other stairs and steps, initial encounter
CPT/HCPCS: 29125; 99283; 73100; 73502

== ENCOUNTER 2021-01-30 11:20 | Outpatient (CLI) | payer OTHER, SELFPAY ==
[2021-01-30 12:54] LABS: Source Nasal/Nares
[2021-01-30 16:33] LABS: COVID-19 PCR Negative (Negative)
== END 2021-01-30 11:21 | disposition home or self-care (01) ==
LOC: LBO 11:21
PROVIDERS: PCP Family Medicine; Visit Provider Student in an Organized Health Care Education/Training Program
DX: Z20.822 Contact with and (suspected) exposure to COVID-19 (principal); Z01.818 Encounter for other preprocedural examination
CPT/HCPCS: 87635

== ENCOUNTER 2021-01-31 10:19 | Day surgery (SDC) | payer OTHER, SELFPAY ==
[2021-01-31] VITALS (7 sets, daily range): BP systolic 101–139; BP diastolic 58–84; PULSE 95–102; RESP 16–28; TEMP 36.3–37; O2SAT 92–96; BMI 39.6
--- NOTE | 2021-01-31 07:48 | W.PM.DSUDISC ---
Discharge Plan Disposition Patient Disposition: HOME Condition: Good Discharge Details Reason For Visit: Closed reduction left wrist Attending Provider: William Shook Primary Care Provider: Nisreen Marte Home Meds and New Rx's Prescriptions: No Action multivitamin Tablet 1 tab PO DAILY RF: 0 ascorbate calcium (vitamin C) 500 mg tablet 500 mg PO BID RF: 0 Ph-I5-jpi-vfzt-qih-sook-bor 1 EACH tablet 1 ea PO BID RF: 0 PRESERVISION SOFTGEL 1 EACH capsule 1 ea PO DAILY RF: 0 magnesium oxide 250 MG tablet 250 mg PO DAILY RF: 0 melatonin 10 MG tablet 10 mg PO HS RF: 0 pravastatin 10 mg tablet 10 mg PO DAILY Qty: 90 RF: 4 zolpidem 5 mg tablet 5 mg PO HS PRN (Reason: insomnia) Qty: 90 RF: 2 Trelegy Ellipta 100-62.5-25 mcg blister with device 1 inh IH DAILY Qty: 180 RF: 4 valacyclovir 500 mg tablet 500 mg PO DAILY Qty: 90 RF: 4 Banatrol Plus Powder In Packet 0.5 packet PO DAILY Qty: 75 RF: 12 Discharge Instructions Additional Instructions: Wrist Discharge Instructions Activity: You should keep the hand/wrist elevated as much as possible for the first few days. You may use the other fingers as tolerated but avoid trying to do too much too soon. You may perform light activities with the splint in place. Dressing/Cast: Your cast should stay in place at all times. Do NOT get it wet. Medications: - You should take Tylenol and Ibuprofen for baseline pain control. - You may apply ice over the wrist, just double bag so it doesn't get wet. Follow-up: 10-14 days Referrals: William Shook MD [ [facility] STAFF PHYSICIAN] - Equipment/Supplies: Cast Activity:: Activity as Tolerated Remove Dressings/Wound Care:: Do Not Remove Shower/Bathe:: Cover Diet:: As Tolerated Discharge Orders Discharge Orders: Discharge Order (Routine); Ordered 01/31/21 Ordered By: Ila Palomino DS: Diagnosis Discharge Diagnosis (1) Fracture of left wrist: Status: Acute
[2021-01-31] MEDS: Lactated Ringers 1,000 ML 80 ML IV (11:34)
--- NOTE | 2021-01-31 12:00 | DI.RAD_ITS ---
Exam(s) XR WRIST LT LIMITED EXAM: XR WRIST LT LIMITED CLINICAL HISTORY: fracture of left wrist. TECHNIQUE: 2D and realtime digital imaging was performed. COMPARISON: CR,XR XR WRIST LT LIMITED from 01/29/2021 CR,XR XR WRIST LT LIMITED from 01/29/2021 FINDINGS: Fluoroscopy was provided for Dr. Shook. Hard copy images show improved alignment of the distal ra dial fracture and placement of a cast. Please see procedure note for details. Fluoro time 19.4 seconds RADIATION DOSE DELIVERED: akil Dixon=0.34 mGy
--- NOTE | 2021-01-31 12:07 | W.ANESPRE ---
General Info Date of Service Date Performed: 01/31/21 Height: 5 ft 2 in Weight: 98.3 kg Body Mass Index (BMI): 39.6 Surgical Procedure: Operation Date: 01/31/21 12:25 Proposed Procedures Side Surgeon p Closed Reduction left Wrist Left William Shook MD Meds Allergies and Home Medications Allergies Allergy/AdvReac Type Severity Reaction Status Date / Time No Known Allergies Allergy Unverified 01/31/21 11:15 Home Medication Medication Instructions Recorded [id number]-pzv-stnd-atm-excq-bor 1 ea PO BID 08/13/12 Preservision Softgel 1 ea PO DAILY 08/13/12 magnesium oxide 250 mg PO DAILY 03/20/17 melatonin 10 mg PO HS 03/20/17 pravastatin 10 mg tablet 10 mg PO DAILY #90 tab 03/21/20 zolpidem 5 mg tablet 5 mg PO HS PRN #90 mg 11/25/20 fluticasone fur. 100 mcg-umeclid 1 inh IH DAILY #180 each 12/27/20 62.5 mcg-vilant 25 mcg inhalat.powder valacyclovir 500 mg tablet 500 mg PO DAILY #90 tab 12/27/20 ascorbate calcium (vitamin C) 500 500 mg PO BID 01/12/21 mg tablet multivitamin 1 tab PO DAILY 01/12/21 banana fyqxgt-l-yzeyvuqtjjfxn. 0.5 packet PO DAILY #75 ea 01/20/21 [Banatrol Plus] Current Visit Medications: Current Medications Generic Name Dose Route Start Last Admin Trade Name Freq PRN Reason Stop Dose Admin Acetaminophen 650 mg 01/31/21 07:47 Acetaminophen 325 Mg Tab PO Q4H PRN PRN Ringer's Solution 1,000 mls @ 80 mls/hr 01/31/21 06:00 01/31/21 11:34 IV 03/01/21 23:59 80 mls/hr INFUSION NIKI Administration Ondansetron HCl 4 mg/ Sodium 52 mls @ 200 mls/hr 01/31/21 07:47 Chloride IVPB Q6H PRN PRN IV Miscellaneous Supplies 1 each 01/31/21 06:00 Iv Access IV 03/01/21 23:59 DIRECTED NIKI Sodium Chloride 0 ml 01/31/21 06:00 Normal Saline Flush 10 Ml Syr IV 03/01/21 23:59 PRN PRN Sodium Chloride 0 ml 01/31/21 06:00 Normal Saline 10 Ml Vial IJ 03/01/21 23:59 DIRECTED PRN Sterile Water 0 ml 01/31/21 06:00 Water,Injection,Sterile 10 Ml Vial IJ 03/01/21 23:59 DIRECTED PRN PFSH Active Problems Active Problems: Problem Status Onset Code Fracture of left wrist S62.102A Fall (on) (from) other stairs and steps, initial encounter W10.8XXA Pelvic floor weakness in female N81.89 Incomplete rectal prolapse K62.3 Gvyxl-4-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 Depressive disorder F32.9 Herpes simplex B00.9 Hyperlipidemia 09/01/12 E78.5 Imbalance 02/28/17 R26.89 Insomnia G47.00 Osteoporosis M81.0 Squamous cell carcinoma 01/23/16 C44.92 Thyroid nodule 05/24/16 E04.1 Vertigo 05/24/16 R42 Pain of hand M79.643 Status post laparoscopic hysterectomy Z90.710 Premature beats I49.49 History of tobacco use Z87.891 Dermatitis L30.9 Acquired trigger finger 05/11/13 M65.30 Dysphagia R13.10 Chronic diarrhea of unknown origin K52.9 COPD (chronic obstructive pulmonary disease) J44.9 Medical History Medical History COPD (chronic obstructive pulmonary disease) High cholesterol Surgical History Surgical History Colonoscopy - IV Sedation 2010; neg H/O shoulder surgery (~1979) Hysterectomy, Laproscopic Has ovaries Tobacco Smoking/Tobacco Use Status: Former Tobacco Use Tobacco: How many years used: 20 Passive smoking exposure: Yes Second hand exposure: Yes Alcohol Alcohol Intake: former Substance Use Substance use: Never Substance use type: does not use Vital Signs and Lab Results Vital Signs Most Recent Vital Signs in EMR: Most Recent Vital Signs Temp Pulse Resp BP Pulse Ox 36.3 C L 102 H 18 139/84 92 01/31/21 11:05 01/31/21 11:05 01/31/21 11:05 01/31/21 11:05 01/31/21 11:05 Lab Results Blood Type / Crossmatch: No Data to Display Complete Blood Count: No Data to Display Complete Metabolic Panel: No Data to Display Liver Function Panel: No Data to Display Coagulation Panel: No Data to Display Cardiac Panel: No Data to Display Arterial Blood Gas: No Data to Display Venous Blood Gas: No Data to Display Pancreas Panel: No Data to Display Thyroid Panel: No Data to Display Infectious Disease: Coronavirus (COVID-19)(PCR) Negative (Negative) 01/30/21 09:54 01/30/21 Coronavirus 2019 Source Nasal/Nares 01/30/21 09:54 01/30/21 Blood Cultures: No Data to Display Toxicology Panel: No Data to Display Anesthesia Assessment and Plan Anesthesia History Personal History: No History of Anesthesia Complications Family History: No Family History of Anesthesia Complications Exercise Tolerance Exercise Tolerance: Metabolic Equivalents<4 Pertinent Negatives Pertinent Negatives: No Symptoms of GERD, No Major Cardiovascular Symptoms or Complaints and No History of CVA/TIA Cardiac & Pulmonary Exam Cardiac Exam: Normal S1/S2 Heart Sounds Pulmonary Exam: Clear Bilateral Breath Sounds Airway Exam Known Difficult Airway: No Mallampati Class: 2 Mouth Opening: Narrow (< 3cm) Thyromental Distance: Greater than 3 cm Neck Range of Motion: Full ROM Neck Circumference: Normal Teeth Condition: Normal Dentition and Removable Dentures/Plates Lower ASA Classification ASA Score: ASA 3 Emergency Case?: No NPO Status NPO Status: NPO Clears >2 hours, Solids >8 hours Anesthesia Plan Resuscitation Status: Full Code Anesthesia Technique: General Anesthesia Airway Planned: Natural Airway Monitors Used: Standard Monitors
[2021-01-31] MEDS: Bupivacaine 0.5% Pres-Free 30 ML VIAL (12:36)
--- NOTE | 2021-01-31 13:11 | W.ANESPOSTOP ---
Postoperative Evaluation Date, Time and Location Date Performed: 01/31/21 Time Performed: 13:12 Patient Location: PACU Vital Signs Most Recent Imported Vital Signs: Most Recent Vital Signs Temp Pulse Resp BP Pulse Ox 36.5 C 99 H 18 101/58 L 95 01/31/21 12:58 01/31/21 12:58 01/31/21 12:58 01/31/21 12:58 01/31/21 12:58 Pain Score Most Recent Pain Score: Most Recent Pain Score Pain Level 0 01/31/21 11:05 Assessment Mental Status: Awake (Alert & Oriented to Patient Baseline) Airway and Respiratory Function: Patent airway with normal (patient baseline) respiratory exam Cardiovascular Function: Hemodynamically Stable Hydration Status: Adequately Hydrated Nausea & Vomiting: No Nausea or Vomiting Pain: Pain is tolerable per patient Peripheral Nerve Block: Patient did not receive a nerve block Teaching Patient Teaching: Discussed Safe Use of Pain Medication Given Recent Anesthesia
--- NOTE | 2021-01-31 22:48 | W.PM.OP ---
Date of service: 01/31/21 Time of Service: 13:05 Operative Note Operative Note DATE OF PROCEDURE: 01/31/21 PRE-OP DIAGNOSIS: Left distal radius fracture POST-OP DIAGNOSIS: same PROCEDURE: Closed reduction of left distal radius fracture SURGEON: William Shook RAIL SWITCH OPERATOR: Ila Palomino ANESTHESIA TYPE: General:No Airway Refer to Anesthesia Record ESTIMATED BLOOD LOSS: 0 PATHOLOGY: none sent COMPLICATIONS: None Patient was transported to: PACU Patient's condition: stable Indications: Angie is a 65-year-old who fell 2 days prior. She landed on an outstretched left hand. She suffered a distal radius fracture which was slightly comminuted and also shortened and dorsally displaced. Given the displacement and angulation I recommended a closed reduction and casting. I reviewed the risk of the procedure to include loss of reduction, malunion, nonunion, stiffness, need for repeat procedures, cast complications. Despite these risk, she elected to proceed. Findings: There was a shortened and dorsally angulated fracture distal radius. This was able to be reduced with closed means in finger traps. The reduction was nearly anatomic except for some volar buckling of the volar cortex of the distal radial metaphysis. Procedure Description: Magnolia was greeted in the preoperative holding area. Her identity was confirmed the correct site was identified and marked. The consent was reviewed with the patient and signed. She was taken to the operating room placed in the supine position. A general uninstrumented airway anesthesia was administered. A timeout was performed for safe surgery. Fracture was palpated over the dorsal aspect of the distal forearm. This was marked on the skin. The skin was then prepped with alcohol and hematoma block was performed using 10 cc of 0.5% bupivacaine. Once this was in place a close reduction was performed. There is notable crepitus at the fracture site and improvement in the palpation of the arm. Fluoroscopy confirmed much improved alignment. A stockinette was applied and the hand was placed in finger traps. Once again and the finger traps there is noted improvement with the alignment the fracture. The form was then wrapped with web roll. Special attention was paid around the thumb and at the ends both proximally and distally. A short arm cast was applied. Reduction was confirmed with fluoroscopy. A three-point mold as well as the ulnar border was initiated. The finger traps were removed and final x-ray obtained. There is much improved positioning of the distal radius fracture. She was then transferred back to the PACU in stable condition.
== END 2021-01-31 14:21 | disposition home or self-care (01) ==
PROVIDERS: PCP Family Medicine; Visit Provider Student in an Organized Health Care Education/Training Program
PROC: (CPT 25605; principal; 2021-01-31 12:15)
DX: S52.592A Other fractures of lower end of left radius, initial encounter for closed fracture (principal); W10.8XXA Fall (on) (from) other stairs and steps, initial encounter; J44.9 Chronic obstructive pulmonary disease, unspecified; E78.5 Hyperlipidemia, unspecified
CPT/HCPCS: 25605; 73100; J2001; J2250; J2405

== ENCOUNTER 2021-02-14 13:12 | Outpatient (CLI) | payer OTHER, SELFPAY ==
--- NOTE | 2021-02-14 13:00 | DI.RAD_ITS ---
Exam(s) XR WRIST LT COMPLETE EXAM: XR WRIST LT COMPLETE INDICATION: 1st post op ORIF L distal radius fracture. COMPARISON: CR,XR XR WRIST LT LIMITED from 01/29/2021 CR,XR XR WRIST LT LIMITED from 01/29/2021 XR WRIST LT LIMITED from 01/31/2021 XR WRIST LT LIMITED from 01/31/2021 TECHNIQUE: 2D digital imaging was performed. FINDINGS: A cast is in place which partially obscures the bony detail. There has been no significant change in the alignment of the comminuted and impacted fracture of the distal radius. DATA REPOSITORY: RADIATION DOSE DELIVERED:
== END 2021-02-14 13:13 | disposition home or self-care (01) ==
LOC: DIORS 13:13
PROVIDERS: PCP Family Medicine; Referring Provider Family Medicine
DX: S62.102A Fracture of unspecified carpal bone, left wrist, initial encounter for closed fracture (principal); S52.592D Other fractures of lower end of left radius, subsequent encounter for closed fracture with routine healing; X58.XXXD Exposure to other specified factors, subsequent encounter
CPT/HCPCS: 73110

== ENCOUNTER 2021-02-27 13:45 | Outpatient (CLI) | payer MEDICARE, SELFPAY ==
--- NOTE | 2021-02-27 13:30 | DI.RAD_ITS ---
Exam(s) XR WRIST LT LIMITED EXAM: XR WRIST LT LIMITED CLINICAL HISTORY: L wrist fx. TECHNIQUE: 2D digital imaging was performed. COMPARISON: CR,XR XR WRIST LT LIMITED from 01/29/2021 CR XR WRIST LT COMPLETE from 02/14/2021 FINDINGS: Cast has been removed. The comminuted impacted fracture of distal radius is noted no carpal dislocation. Positive ulnar juan iance noted. IMPRESSION: DATA REPOSITORY: RADIATION DOSE DELIVERED:
== END 2021-02-27 13:46 | disposition home or self-care (01) ==
LOC: DIORS 13:45
PROVIDERS: PCP Family Medicine; Referring Provider Family Medicine; Visit Provider Family Medicine
DX: S62.102D Fracture of unspecified carpal bone, left wrist, subsequent encounter for fracture with routine healing (principal); X58.XXXD Exposure to other specified factors, subsequent encounter
CPT/HCPCS: 73100

== ENCOUNTER 2021-03-01 00:54 | Outpatient (CLI) | payer OTHER, SELFPAY ==
[2021-03-01 11:08] LABS: Source Nasal/Nares
[2021-03-01 14:12] LABS: COVID-19 PCR Negative (Negative)
== END 2021-03-01 00:55 | disposition home or self-care (01) ==
PROVIDERS: PCP Family Medicine; Visit Provider Student in an Organized Health Care Education/Training Program
DX: Z20.822 Contact with and (suspected) exposure to COVID-19 (principal); Z01.818 Encounter for other preprocedural examination
CPT/HCPCS: 87635

== ENCOUNTER 2021-03-03 11:22 | Day surgery (SDC) | payer OTHER, SELFPAY ==
[2021-03-03] VITALS (12 sets, daily range): BP systolic 111–148; BP diastolic 68–95; PULSE 70–91; RESP 18–20; TEMP 36.3–36.6; O2SAT 92–100; BMI 18.1
--- NOTE | 2021-03-03 10:25 | PDOC.DSDIS_ITS ---
Documented by User: Olga Lidia Yao 03/03/21 10:27 Discharge Plan Disposition Patient Disposition: HOME Condition: Good Discharge Details Reason For Visit: Left wrist fracture Attending Provider: William Shook Primary Care Provider: Nisreen Marte Home Meds and New Rx's Prescriptions: New acetaminophen 500 mg tablet 500 mg PO Q6H PRN (Reason: pain) Qty: 60 RF: 2 ibuprofen 600 mg tablet 600 mg PO TID PRN (Reason: pain) Qty: 60 RF: 0 hydrocodone-acetaminophen 5-325 mg tablet 1 tab PO Q6H PRN (Reason: pain) Qty: 10 RF: 0 Continued multivitamin Tablet 1 tab PO DAILY RF: 0 ascorbate calcium (vitamin C) 500 mg tablet 500 mg PO BID RF: 0 Ol-J7-qsd-badf-njt-dlvt-bor 1 EACH tablet 1 ea PO BID RF: 0 magnesium oxide 250 MG tablet 250 mg PO DAILY RF: 0 melatonin 10 MG tablet 10 mg PO HS RF: 0 pravastatin 10 mg tablet 10 mg PO DAILY Qty: 90 RF: 4 zolpidem 5 mg tablet 5 mg PO HS PRN (Reason: insomnia) Qty: 90 RF: 2 Trelegy Ellipta 100-62.5-25 mcg blister with device 1 inh IH DAILY Qty: 180 RF: 4 valacyclovir 500 mg tablet 500 mg PO DAILY Qty: 90 RF: 4 Banatrol Plus Powder In Packet 0.5 packet PO DAILY Qty: 75 RF: 12 Discharge Instructions Additional Instructions: Wrist Fracture Fixation Discharge Instructions Activity: You should keep the hand/wrist elevated as much as possible for the first few days. You may use the other fingers as tolerated but avoid trying to do too much too soon. You may perform light activities with the splint in place. Dressing/Cast: Your splint should stay in place at all times. Do NOT get it wet. You may loosen the HANK wrap if you feel it is too tight and then rewrap more loosely. Medications: - You should take Tylenol and Ibuprofen for baseline pain control. - You have been prescribed a stronger pain medication, Hydrocodone, for breakthrough pain. - You may apply ice over the wrist, just double bag so it doesn't get wet. Follow-up: 10-14 days Referrals: William Shook MD [ [facility] STAFF PHYSICIAN] - Equipment/Supplies: Splint and Sling Activity:: Elevate Remove Dressings/Wound Care:: Do Not Remove Shower/Bathe:: Cover Diet:: As Tolerated Discharge Orders Discharge Orders: Discharge Order (Routine); Ordered 03/03/21 Ordered By: Olga Lidia Yao DS: Diagnosis Discharge Diagnosis (1) Fracture of left wrist: Status: Acute Documented by User: William Shook MD 03/03/21 14:36 Discharge Plan Disposition Patient Disposition: HOME Condition: Good Discharge Details Reason For Visit: Left wrist fracture Attending Provider: William Shook Primary Care Provider: Nisreen Marte Home Meds and New Rx's Prescriptions: New acetaminophen 500 mg tablet 500 mg PO Q6H PRN (Reason: pain) Qty: 60 RF: 2 ibuprofen 600 mg tablet 600 mg PO TID PRN (Reason: pain) Qty: 60 RF: 0 hydrocodone-acetaminophen 5-325 mg tablet 1 tab PO Q6H PRN (Reason: pain) Qty: 10 RF: 0 Continued multivitamin Tablet 1 tab PO DAILY RF: 0 ascorbate calcium (vitamin C) 500 mg tablet 500 mg PO BID RF: 0 Mq-V3-avg-tatp-apa-qnbv-bor 1 EACH tablet 1 ea PO BID RF: 0 magnesium oxide 250 MG tablet 250 mg PO DAILY RF: 0 melatonin 10 MG tablet 10 mg PO HS RF: 0 pravastatin 10 mg tablet 10 mg PO DAILY Qty: 90 RF: 4 zolpidem 5 mg tablet 5 mg PO HS PRN (Reason: insomnia) Qty: 90 RF: 2 Trelegy Ellipta 100-62.5-25 mcg blister with device 1 inh IH DAILY Qty: 180 RF: 4 valacyclovir 500 mg tablet 500 mg PO DAILY Qty: 90 RF: 4 Banatrol Plus Powder In Packet 0.5 packet PO DAILY Qty: 75 RF: 12 Discharge Instructions Additional Instructions: Wrist Fracture Fixation Discharge Instructions Activity: You should keep the hand/wrist elevated as much as possible for the first few days. You may use the other fingers as tolerated but avoid trying to do too much too soon. You may perform light activities with the splint in place. Dressing/Cast: Your splint should stay in place at all times. Do NOT get it wet. You may loosen the HANK wrap if you feel it is too tight and then rewrap more loosely. Medications: - You should take Tylenol and Ibuprofen for baseline pain control. - You have been prescribed a stronger pain medication, Hydrocodone, for breakthrough pain. - You may apply ice over the wrist, just double bag so it doesn't get wet. Follow-up: 10-14 days Referrals: William Shook MD [ [facility] STAFF PHYSICIAN] - Equipment/Supplies: Splint and Sling Activity:: Elevate Remove Dressings/Wound Care:: Do Not Remove Shower/Bathe:: Cover Diet:: As Tolerated Discharge Orders Discharge Orders: Discharge Order (Routine); Ordered 03/03/21 Ordered By: Olga Lidia Yao
[2021-03-03] MEDS: Lactated Ringers 1,000 ML 80 ML IV (12:03)
--- NOTE | 2021-03-03 12:20 | W.ANESPRE ---
General Info Date of Service Date Performed: 03/03/21 Height: 5 ft 2 in Weight: 44.906 kg Body Mass Index (BMI): 18.1 Surgical Procedure: Operation Date: 03/03/21 12:40 Proposed Procedures Side Surgeon p ORIF LT WRIST William Shook MD Meds Allergies and Home Medications Allergies Allergy/AdvReac Type Severity Reaction Status Date / Time No Known Allergies Allergy Verified 03/03/21 11:38 Home Medication Medication Instructions Recorded Oh-X1-hwr-jpai-gbo-dxgw-bor 1 ea PO BID 08/13/12 magnesium oxide 250 mg PO DAILY 03/20/17 melatonin 10 mg PO HS 03/20/17 pravastatin 10 mg tablet 10 mg PO DAILY #90 tab 03/21/20 zolpidem 5 mg tablet 5 mg PO HS PRN #90 mg 11/25/20 fluticasone fur. 100 mcg-umeclid 1 inh IH DAILY #180 each 12/27/20 62.5 mcg-vilant 25 mcg inhalat.powder valacyclovir 500 mg tablet 500 mg PO DAILY #90 tab 12/27/20 ascorbate calcium (vitamin C) 500 500 mg PO BID 01/12/21 mg tablet multivitamin 1 tab PO DAILY 01/12/21 Banatrol Plus 0.5 packet PO DAILY #75 ea 01/20/21 acetaminophen 500 mg PO Q6H PRN #60 tab 03/03/21 ibuprofen 600 mg PO TID PRN #60 tab 03/03/21 Current Visit Medications: Current Medications Generic Name Dose Route Start Last Admin Trade Name Freq PRN Reason Stop Dose Admin Acetaminophen 650 mg 03/03/21 10:24 Acetaminophen 325 Mg Tab PO Q4H PRN PRN Hydrocodone Bitart/Acetaminophen 0 tab 03/03/21 10:24 Hydrocodone 5/Acetaminophen 325 Tab PO Q3H PRN PRN Pain Ringer's Solution 1,000 mls @ 80 mls/hr 03/03/21 06:00 03/03/21 12:03 IV 04/01/21 23:59 80 mls/hr INFUSION NIKI Administration Cefazolin Sodium 2,000 mg/ 100 mls @ 200 mls/hr 03/03/21 06:00 Sodium Chloride IV 03/03/21 23:59 PREOP NIKI IV Miscellaneous Supplies 1 each 03/03/21 06:00 Iv Access IV 04/01/21 23:59 DIRECTED NIKI Sodium Chloride 0 ml 03/03/21 06:00 Normal Saline Flush 10 Ml Syr IV 04/01/21 23:59 PRN PRN Sodium Chloride 0 ml 03/03/21 06:00 Normal Saline 10 Ml Vial IJ 04/01/21 23:59 DIRECTED PRN Sterile Water 0 ml 03/03/21 06:00 Water,Injection,Sterile 10 Ml Vial IJ 04/01/21 23:59 DIRECTED PRN PFSH Active Problems Active Problems: Problem Status Onset Code Fracture of left wrist 01/29/21 S62.102A Fall (on) (from) other stairs and steps, initial encounter W10.8XXA Pelvic floor weakness in female N81.89 Incomplete rectal prolapse K62.3 Ghcre-7-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 Depressive disorder F32.9 Herpes simplex B00.9 Hyperlipidemia 09/01/12 E78.5 Imbalance 02/28/17 R26.89 Insomnia G47.00 Osteoporosis M81.0 Squamous cell carcinoma 01/23/16 C44.92 Thyroid nodule 05/24/16 E04.1 Vertigo 05/24/16 R42 Pain of hand M79.643 Status post laparoscopic hysterectomy Z90.710 Premature beats I49.49 History of tobacco use Z87.891 Dermatitis L30.9 Acquired trigger finger 05/11/13 M65.30 Dysphagia R13.10 Chronic diarrhea of unknown origin K52.9 COPD (chronic obstructive pulmonary disease) J44.9 Medical History Medical History COPD (chronic obstructive pulmonary disease) High cholesterol Surgical History Surgical History Colonoscopy - IV Sedation 2010; neg Fracture of left wrist (01/29/21) S/P Closed Reduction and castin01/31/2021 H/O shoulder surgery (~1979) Hysterectomy, Laproscopic Has ovaries Tobacco Smoking/Tobacco Use Status: Former Tobacco Use Tobacco: How many years used: 20 Passive smoking exposure: Yes Second hand exposure: Yes Alcohol Alcohol Intake: former Substance Use Substance use: Never Substance use type: does not use Vital Signs and Lab Results Vital Signs Most Recent Vital Signs in EMR: Most Recent Vital Signs Temp Pulse Resp BP Pulse Ox 36.3 C L 91 H 18 147/95 H 97 03/03/21 11:30 03/03/21 11:30 03/03/21 11:30 03/03/21 11:30 03/03/21 11:30 Lab Results Blood Type / Crossmatch: No Data to Display Complete Blood Count: No Data to Display Complete Metabolic Panel: No Data to Display Liver Function Panel: No Data to Display Coagulation Panel: No Data to Display Cardiac Panel: No Data to Display Arterial Blood Gas: No Data to Display Venous Blood Gas: No Data to Display Pancreas Panel: No Data to Display Thyroid Panel: No Data to Display Infectious Disease: Coronavirus (COVID-19)(PCR) Negative (Negative) 03/01/21 10:23 03/01/21 Coronavirus 2019 Source Nasal/Nares 03/01/21 10:23 03/01/21 Blood Cultures: No Data to Display Toxicology Panel: No Data to Display Anesthesia Assessment and Plan Anesthesia History Personal History: No History of Anesthesia Complications Family History: No Family History of Anesthesia Complications Exercise Tolerance Exercise Tolerance: Metabolic Equivalents>4 Pertinent Negatives Pertinent Negatives: No Symptoms of GERD, No Major Cardiovascular Symptoms or Complaints and No History of CVA/TIA Cardiac & Pulmonary Exam Cardiac Exam: Normal S1/S2 Heart Sounds Pulmonary Exam: Clear Bilateral Breath Sounds Airway Exam Known Difficult Airway: No Mallampati Class: 2 Mouth Opening: Narrow (< 3cm) Thyromental Distance: Greater than 3 cm Neck Range of Motion: Full ROM Neck Circumference: Normal Teeth Condition: Normal Dentition and Removable Dentures/Plates Lower ASA Classification ASA Score: ASA 3 Emergency Case?: No NPO Status NPO Status: NPO Clears >2 hours, Solids >8 hours Anesthesia Plan Resuscitation Status: Full Code Anesthesia Technique: General Anesthesia Airway Planned: LMA Pain Management: Surgeon and patient request nerve block Monitors Used: Standard Monitors
--- NOTE | 2021-03-03 12:30 | DI.RAD_ITS ---
Exam(s) XR WRIST LT COMPLETE EXAM: XR WRIST LT COMPLETE CLINICAL HISTORY: LEFT WRIST FACTURE TECHNIQUE: 2D and realtime digital imaging was performed. CONTRAST MATERIAL: Refer to procedure report. COMPARISON: CR XR WRIST LT LIMITED from 02/27/2021 CR XR WRIST LT LIMITED from 02/27/2021 FINDINGS: Fluoroscopy was provided for Dr. Shook during the performance of a reduction and internal fixatio n of the distal left radial fracture. Please refer to the procedure report for complete details. Ka,r=0.465 mGy IMPRESSION: RADIATION DOSE DELIVERED:
[2021-03-03] MEDS: ceFAZolin 2,000 MG in Normal Saline 100 ML 200 MG IV (12:57)
--- NOTE | 2021-03-03 15:14 | W.ANESPOSTOP ---
Postoperative Evaluation Date, Time and Location Date Performed: 03/03/21 Time Performed: 15:14 Patient Location: PACU Vital Signs Most Recent Imported Vital Signs: Most Recent Vital Signs Temp Pulse Resp BP Pulse Ox 36.4 C L 76 19 144/72 H 98 03/03/21 15:03/03/21 15:03/03/21 15:03/03/21 15:03/03/21 15:09 Pain Score Most Recent Pain Score: Most Recent Pain Score Pain Level 0 03/03/21 11:30 Assessment Mental Status: Awake (Alert & Oriented to Patient Baseline) Airway and Respiratory Function: Patent airway with normal (patient baseline) respiratory exam Cardiovascular Function: Hemodynamically Stable Hydration Status: Adequately Hydrated Nausea & Vomiting: No Nausea or Vomiting Pain: Pain is tolerable per patient Peripheral Nerve Block: Patient did not receive a nerve block
--- NOTE | 2021-03-03 15:19 | W.PM.OP ---
Date of service: 03/03/21 Time of Service: 14:19 Operative Note Operative Note DATE OF PROCEDURE: 03/03/21 PRE-OP DIAGNOSIS: Left Distal Radius Fracture Malunion POST-OP DIAGNOSIS: same PROCEDURE: Open Reduction and Internal Fixation of Left Distal Radius SURGEON: William Shook [employer] MACHINE OPERATOR: Olga Lidia Yao ANESTHESIA TYPE: General LMA/ETT Refer to Anesthesia Record ESTIMATED BLOOD LOSS: 10 PATHOLOGY: none sent TOURNIQUET TIME: 0 COMPLICATIONS: None Patient was transported to: PACU Patient's condition: stable Indications: Mariah is a 65 year old female who I have seen for a distal radius fracture. This was initially closed reduced and casted with initial excellent position. However, subsequent x-rays demonstrated notable collapse with radial shortening and dorsal angulation. Given the deformity, displacement, fracture pattern, and effect on daily function, I recommended surgical fixation. I reviewed the risk of the procedure to include bleeding, infection co-pay, stiffness, damage to nerves and vessels, damage to muscles and tendons, malunion, nonunion, hardware prominence, tendon rupture, need for repeat procedures. Despite these risks, the patient elected to proceed. Findings: There was a significantly comminuted fracture of the distal radius about the left hand. There is notable malunion with shortening and dorsal angulation. The initial fracture callus was removed with elevators and a rongeur. The positioning was improved and reduced and secured with a Synthes volar distal radius plate and the bone void was filled with Norian calcium phosphate cement. Procedure Description: Mariah was greeted in the preoperative holding area. The correct patient and site was confirmed and marked. The history and physical was updated. The consent was reviewed the patient and signed. The patient was taken to the operating room and placed in the supine position. All bony problems were well-padded. The left arm was placed onto a radiolucent hand table. A nonsterile tourniquet was placed high up on the arm. Prophylactic antibiotics in the form of cefazolin were administered. The left arm was prepped with ChloraPrep and draped in a standard fashion. A timeout was performed for safe surgery. A standard longitudinal incision was made overlying the flexor carpi radialis tendon starting at the distal wrist crease and moving proximally. The skin was incised sharply. The flexor carpi radialis tendon and its sheath is identified. The sheath was opened. The tendon was moved ulnarly in the floor of the sheath was incised. Blunt dissection the flexor pollicis longus muscle belly and tendon were also made radially exposing the pronator quadratus and the distal radius. The printer quadratus was elevated with an ulnar-based flap. This exposed the volar distal radius and the fracture. A yadav elevator was used for full exposure of the volar surface of the distal radius. The primary fracture line was exposed. There is early healing seen around this area. Using a series of elevators, curettes, and knife, the fracture was fully debrided of any fibrous tissue and callus formation. I used a freer elevator to help mobilize the fragments. I tried to keep the comminution close to the joint untouched so I have one solid block to mobilize. I externally rotated the proximal fragment of distal radius to help remove callus formation which is formed dorsally. This was assisted with a yadav elevator around the dorsal surface of the distal radius until the distal fracture block was mobile. An appropriately sized Synthes volar locking plate was then placed onto the bony surface of the distal radius. This was then held there with a distal radius clamp sandwiching the plate to the distal segment. A single K wire was placed through the distal end. Fluoroscopy was once again used to confirm appropriate positioning of the plate on the distal radius. A reduction K wire was placed into the slotted hole on the shaft but not tightened all the way to allow for manipulation of the distal segment onto the proximal shaft. This was tentatively position reducing it to the distal segment first so I could manipulate the plate onto the shaft of the radius for later reduction. It appeared to be appropriately positioned and the proximal distal direction as well as in the medial lateral direction. A single nonlocking screw was placed to the distal portion of the plate securing the plate against the bone of the distal radial metaphysis. Once again, the plate was evaluated to make sure it was aligned appropriately. The single screw was also checked to make sure it was in appropriate positioning for trajectory of future screws. The screw was extremely close to the joint surface but on multiple views was within the distal radius bone which was as desired to obtain some purchase of the screw. The remainder of the screws within the volar locking plate were filled with locking screws. These were made sure not to penetrate the dorsal cortex nor the joint. Once these were applied the proximal portion of the plate was further reduced down onto the shaft, which further reduce the distal segment. This was held in position with a tightened reduction K wire. Fluoroscopy was then used against confirm appropriate reduction. Nonlocking screws were placed within the sliding hole. Even though I was applying some distraction there still was some shortening. Therefore a second screw was placed in the other sliding hole. The first screw was loosened and traction was applied to the hand in order to gain appropriate length. These 2 screws were then tightened down all the way. A third screw was then applied. These nonlocking screws in the shaft or 2.7 millimeter screws. The first nonlocking screw in the shaft had to be exchanged due to it being too long. With this in appropriate position, there is a notable bony defect. This measured at least 4 to 5 mm in distance for the entire width of the distal radius. Therefore, I utilized Norian calcium phosphate cement to backfill this whole. Retractors were placed around the edges of the distal radius to ensure that no bone cement escaped around the radius. Some of the callus and early bone from the started kit was also used implant in this area. Once this was filled an x-ray was utilized to confirm there is no apparent bone cement and that we appropriately filled the space. Final x-rays were obtained which demonstrated adequate reduction and positioning of hardware. The dorsal sunrise view was also obtained to ensure correct sizing of screws. The wound was then thoroughly irrigated. The pronator quadratus was reapproximated with a 0 Vicryl. The tourniquet was released and there was no notable vascular injury. The fingers were warm and well-perfused. The deep dermal layer was closed with a 2-0 Vicryl. The skin was closed with 4-0 Monocryl in a buried, subcuticular fashion. The wound was dressed with Xeroform, 4 x 4's, web roll. A short arm splint was applied. At the end the case all counts are correct. Patient was transferred back to the PACU in stable condition.
[2021-03-03] MEDS: Ketorolac 15 MG/ML VIAL IVP (15:25)
[2021-03-03] MEDS: fentaNYL 100 MCG/2 ML VIAL IVP ×2 (15:48→15:57)
== END 2021-03-03 17:15 | disposition home or self-care (01) ==
LOC: SUR 11:23
PROVIDERS: PCP Family Medicine; Visit Provider Student in an Organized Health Care Education/Training Program
PROC: (CPT 25400; principal; 2021-03-03 12:30)
DX: S52.592P Other fractures of lower end of left radius, subsequent encounter for closed fracture with malunion (principal); X58.XXXA Exposure to other specified factors, initial encounter
CPT/HCPCS: 25400; 73110; J0131; J0690; J1885; J2001; J3010

== ENCOUNTER 2021-03-05 22:20 | Emergency (ER) | payer OTHER, SELFPAY ==
[2021-03-05 22:25] VITALS: BP 195/101; PULSE 104; RESP 18; TEMP 36.4; O2SAT 96
--- NOTE | 2021-03-05 22:39 | ED.GENADUL_ITS ---
Discharge Plan Disposition Patient Disposition: HOME Condition: Stable Discharge Details Clinical Impression: Status post open reduction and internal fixation (ORIF) of fracture, Redness and swelling of forearm Primary Care Provider: Nisreen Marte ED Provider: Raven Babcock Home Meds and New Rx's Prescriptions: New cephalexin 500 mg capsule 500 mg PO QID 7 Days Qty: 28 RF: 0 Continued multivitamin Tablet 1 tab PO DAILY RF: 0 ascorbate calcium (vitamin C) 500 mg tablet 500 mg PO BID RF: 0 [id number]-lvg-olvm-bor 1 EACH tablet 1 ea PO BID RF: 0 magnesium oxide 250 MG tablet 250 mg PO DAILY RF: 0 melatonin 10 MG tablet 10 mg PO HS RF: 0 pravastatin 10 mg tablet 10 mg PO DAILY Qty: 90 RF: 4 zolpidem 5 mg tablet 5 mg PO HS PRN (Reason: insomnia) Qty: 90 RF: 2 Trelegy Ellipta 100-62.5-25 mcg blister with device 1 inh IH DAILY Qty: 180 RF: 4 valacyclovir 500 mg tablet 500 mg PO DAILY Qty: 90 RF: 4 Banatrol Plus Powder In Packet 0.5 packet PO DAILY Qty: 75 RF: 12 acetaminophen 500 mg tablet 500 mg PO Q6H PRN (Reason: pain) Qty: 60 RF: 2 ibuprofen 600 mg tablet 600 mg PO TID PRN (Reason: pain) Qty: 60 RF: 0 hydrocodone-acetaminophen 5-325 mg tablet 1 tab PO Q6H PRN (Reason: pain) Qty: 10 RF: 0 Discharge Instructions Instructions: Wound Infection (ED) Additional Instructions: Your forearm redness, swelling and pain may be expected postoperative findings and may be due to blood under the skin. You are being started on oral antibiotics in the event that you may be developing a wound infection at your surgical site. A prescription for Keflex has been sent electronically to your pharmacy. Take this as directed until finished. Continue to take your pain medication as needed and directed. Continue to keep your extremity elevated as much as possible, rest, and ice as directed. Call Dr. Shook's office on Saturday morning to schedule a follow-up appointment for reevaluation this week. Return immediately to the emergency department if you develop any worsening or new concerning symptoms such as fever, increased redness, swelling or pain. Referrals: William Shook MD [ [facility] STAFF PHYSICIAN] - Discharge Data Discharge Date/Time-TO BE ENTERED AT DEPARTURE: 03/05/21 23:05 Discharge Physician: Raven Babcock Medical Decision Making 65-year-old female who is 2 days status post open reduction internal fixation of left distal radius fracture presents with concern for infection at surgical site as she has noted swelling of the proximal forearm x 2 days and redness since yesterday. Proximal forearm with mild to moderate erythema and edema but no induration or fluctuance. Normal capillary refill. Compartments soft. Patient appears nontoxic and is afebrile. Case discussed with Dr. Shook --do not need to remove splint -- presentation may be expected postoperative findings which can be due to collection of blood under skin. Recommends coverage with Keflex. Patient was given 1 dose here, additional for home and prescription sent electronically to her pharmacy. Patient's overlying Ben wrap were removed and replaced with new Ben wrap. She felt that the previous ben wraps were too tight and this feels more comfortable now. Discussed that this was likely due to expected postoperative swelling. She was advised on the importance of ice and elevation. Advised to call Dr. Shook's office on Saturday morning for follow-up this week. Usual and customary return precautions given prior to discharge. Medical Records Medical records reviewed: Yes I reviewed the patient's medical records. HPI General Mode of arrival: ambulatory . Date/Time Provider Initiated Documentation: 03/05/21 22:23 . Limitations to Documentation: no limitations . Information obtained by: patient . HPI Narrative: Patient is a 65-year-old female who is 2 days postop ORIF of left distal radius with Dr. Shook presents with concern for left forearm infection with redness, warmth, swelling and increased pain in her forearm just above proximal end of splint. She states she has been taking her ibuprofen, icing and elevating as much as possible. She denies any known fever. Related Data Home Medications Medication Instructions Recorded Confirmed [id number]-[id number]-ecno-bor 1 ea PO BID 08/13/12 03/05/21 magnesium oxide 250 mg PO DAILY 03/20/17 03/05/21 melatonin 10 mg PO HS 03/20/17 03/05/21 pravastatin 10 mg tablet 10 mg PO DAILY #90 tab 03/21/20 03/05/21 zolpidem 5 mg tablet 5 mg PO HS PRN #90 mg 11/25/20 03/05/21 fluticasone fur. 100 mcg-umeclid 1 inh IH DAILY #180 each 12/27/20 03/05/21 62.5 mcg-vilant 25 mcg inhalat.powder valacyclovir 500 mg tablet 500 mg PO DAILY #90 tab 12/27/20 03/05/21 ascorbate calcium (vitamin C) 500 500 mg PO BID 01/12/21 03/05/21 mg tablet multivitamin 1 tab PO DAILY 01/12/21 03/05/21 Banatrol Plus 0.5 packet PO DAILY #75 ea 01/20/21 03/05/21 acetaminophen 500 mg PO Q6H PRN #60 tab 03/03/21 03/05/21 hydrocodone-acetaminophen 1 tab PO Q6H PRN #10 tab 03/03/21 03/05/21 ibuprofen 600 mg PO TID PRN #60 tab 03/03/21 03/05/21 cephalexin 500 mg PO QID 7 Days #28 cap 03/05/21 Previous Rx's Medication Instructions Recorded pravastatin 10 mg tablet 10 mg PO DAILY #90 tab 03/21/20 zolpidem 5 mg tablet 5 mg PO HS PRN #90 mg 11/25/20 fluticasone fur. 100 mcg-umeclid 1 inh IH DAILY #180 each 12/27/20 62.5 mcg-vilant 25 mcg inhalat.powder valacyclovir 500 mg tablet 500 mg PO DAILY #90 tab 12/27/20 Banatrol Plus 0.5 packet PO DAILY #75 ea 01/20/21 acetaminophen 500 mg PO Q6H PRN #60 tab 03/03/21 hydrocodone-acetaminophen 1 tab PO Q6H PRN #10 tab 03/03/21 ibuprofen 600 mg PO TID PRN #60 tab 03/03/21 cephalexin 500 mg PO QID 7 Days #28 cap 03/05/21 Allergies Allergy/AdvReac Type Severity Reaction Status Date / Time No Known Allergies Allergy Verified 03/05/21 22:32 General Stated Complaint: Orthopedic ARIANA: 3 Review of Systems All systems reviewed & are unremarkable except as noted in HPI and below Constitutional Constitutional: Reports as per HPI, Denies chills and Denies fever(s) Eyes Eyes: Denies blurry vision ENT Ears, Nose, Mouth, and Throat: Denies dizziness, Denies sore throat and Denies throat swelling Cardiovascular Cardiovascular: Denies chest pain and Denies dyspnea Respiratory Respiratory: Denies cough and Denies dyspnea Gastrointestinal Gastrointestinal: Denies abdominal pain, Denies diarrhea and Denies vomiting Genitourinary Genitourinary: Denies hematuria and Denies dysuria Musculoskeletal Musculoskeletal: Denies back pain and Denies numbness Integumentary/Breasts Skin/Breast: Denies lesions and Denies rash Neurologic Neurologic: Denies dizziness, Denies localized weakness and Denies numbness Allergic/Immunologic Allergic/Immunologic: Denies throat swelling [facility] Medical History (Updated 03/05/21 @ 22:49 by Raven Babcock DO) COPD (chronic obstructive pulmonary disease) High cholesterol Surgical History (Updated 03/05/21 @ 22:49 by Raven Babcock DO) Colonoscopy - IV Sedation 2010; neg Fracture of left wrist (01/29/21) S/P Closed Reduction and castin01/31/2021 H/O shoulder surgery (~1979) Hysterectomy, Laproscopic Has ovaries Family History Mother Essential hypertension Hyperlipidemia Father Essential hypertension Heart disease Hyperlipidemia Depression Sister Depression Sister No problems noted. Brother No problems noted. Son No problems noted. Son No problems noted. Social History Smoking/Tobacco Use Status: Former Tobacco Use Quit Date: 09/24/96 Tobacco: How many years used: 20 Second Hand Exposure: Yes Smoking risk assessment performed?: Yes Alcohol Intake: former Drug use: Never Substance use type: does not use Pets and animals: No Current gender identity: female Duration: 15-30 minutes/day Frequency: decline to answer Christine/Alevism: Hinduism Special christine needs: No Do you feel safe at home: Yes Do you feel safe in your relationship?: Yes Exam Const General: cooperative and no acute distress HENMT Head: normal to inspection Mouth: oral mucosae normal Eyes General: appearance normal, both eyes and all related structures Neck Neck: normal visual inspection Resp Effort & Inspection: normal respiratory effort and able to speak in complete sentences Cardio Rate: regular rate Skin General skin exam: no rashes or lesions noted Neuro General: patient alert, patient awake and patient oriented x3 Motor: muscle tone normal throughout Extrem General: capillary refill normal Elbow/forearm/wrist images: 1. Portion of forearm visible proximal to splint. Area is mild to moderately edematous and erythematous. No induration, fluctuance. Psych Appearance: grossly normal Affect: normal affect Course Vital Signs Vital signs: Vital Signs Temperature 97.5 F L 03/05/21 22:25 Pulse 104 H 03/05/21 22:25 Respiratory Rate 18 03/05/21 22:25 Blood Pressure 195/101 H 03/05/21 22:25 Pulse Oximetry 96 03/05/21 22:25 Temperature 97.5 F L 03/05/21 22:25 Temperature Source Temporal Artery Scan 03/05/21 22:25 Pulse 104 H 03/05/21 22:25 Respiratory Rate 18 03/05/21 22:25 Respiratory Effort Non-Labored 03/05/21 22:34 Blood Pressure 195/101 H 03/05/21 22:25 Blood Pressure Position Sitting 03/05/21 22:25 Pulse Oximetry 96 03/05/21 22:25 Oxygen Delivery Method Room Air 03/05/21 22:25 Oxygen Flow Rate 0 03/05/21 22:25 Pain Level 3 03/05/21 22:34
[2021-03-05] MEDS: Cephalexin 500 MG CAP PO (22:52)
[2021-03-05] MEDS: Cephalexin 500 MG CAP, 4 CAPS/BTL PO (22:52)
[2021-03-05 22:53] VITALS: BP 175/91; PULSE 90
== END 2021-03-05 23:05 | disposition home or self-care (01) ==
PROVIDERS: Emergency Provider Physician Assistant; PCP Family Medicine
DX: R22.31 Localized swelling, mass and lump, right upper limb (principal); Z96.698 Presence of other orthopedic joint implants; L53.8 Other specified erythematous conditions
CPT/HCPCS: 99283

== ENCOUNTER → 2021-03-07 12:57 | Outpatient (BNVA) | payer MEDICARE, SELFPAY | PROVIDERS: PCP Family Medicine; Referring Provider Family Medicine | DX: S52.592D Other fractures of lower end of left radius, subsequent encounter for closed fracture with routine healing (principal); X58.XXXD Exposure to other specified factors, subsequent encounter ==

== ENCOUNTER 2021-03-13 16:26 | Outpatient (CLI) | payer MEDICARE, SELFPAY ==
--- NOTE | 2021-03-13 14:30 | DI.RAD_ITS ---
Exam(s) XR WRIST LT LIMITED EXAM: XR WRIST LT LIMITED INDICATION: s/p ORIF L WRIST. COMPARISON: RF XR WRIST LT COMPLETE from 03/03/2021 RF XR WRIST LT COMPLETE from 03/03/2021 TECHNIQUE: 2D digital imaging was performed. FINDINGS: There has been no change in hardware or fracture alignment. DATA REPOSITORY: RADIATION DOSE DELIVERED:
== END 2021-03-13 16:27 | disposition home or self-care (01) ==
LOC: DIORS 16:27
PROVIDERS: PCP Family Medicine; Referring Provider Family Medicine; Visit Provider Student in an Organized Health Care Education/Training Program
DX: S62.102D Fracture of unspecified carpal bone, left wrist, subsequent encounter for fracture with routine healing (principal); X58.XXXD Exposure to other specified factors, subsequent encounter
CPT/HCPCS: 73100

== ENCOUNTER → 2021-11-23 02:34 | Outpatient (CLI) | payer MEDICARE, SELFPAY ==
--- NOTE | 2021-11-23 06:45 | DI.CT_ITS ---
Exam(s) CT CHEST WO EXAM: CT CHEST WO CLINICAL HISTORY: f/u chest CT 02/2020,LUNG NODULE, R91.1. TECHNIQUE: Multi planar reconstructions were performed. CONTRAST MATERIAL: None COMPARISON: CT CT CHEST WO from 02/17/2020 FINDINGS: CHEST: LUNGS: Again noted are COPD emphysematous changes. The previously described scar-like nodular densit y in the left upper lobe remain stable, unchanged from February 2020. Mild peripheral scarring in t he right upper lobe is also unchanged. There are no new concerning lung nodules and there are no ple ural effusions. No new findings in trachea and mainstem bronchi. MEDIASTINUM: There is no obvious hilar nor mediastinal adenopathy. Small partially calcified nodule r ight thyroid lobe noted. This can be further investigated with ultrasound.No obvious axillary adenop athy CARDIAC: Heart size is normal. There is no pericardial effusion.Caliber of the thoracic aorta is wit hin normal limits. VISUALIZED UPPER ABDOMEN:No adrenal mass is seen. Subcapsular lesion in the right hepatic lobe is un changed from 2019. This is probably a benign hemangioma. OSSEOUS: No significant osseous lesions.. IMPRESSION: 1. Stable appearance of the left upper lobe nodular density, unchanged from February 2020 and theref ore most likely benign. Also unchanged from 2019 2. No new nodules nor pleural effusions. 3. Incidentally noted is a partially calcified small nodule in the right thyroid lobe. This can be f urther investigated with ultrasound examination. Stable appearing subcapsular finding in the right hepatic lobe, probably a an hemangioma. RADIATION DOSE DELIVERED: 282.73mGy.cm Total DLP DATA REPOSITORY: All CT scans at this facility are submitted to the National Radiology Data Registry (NRDR) Dose Index Registry (DIR) with the [employer] (A[employer]). RADIATION OPTIMIZATION: All CT scans at this facility use at least one of these dose optimization te chniques: automated exposure control; mA and/or kV adjustment per patient size (includes targeted exa ms where dose is matched to clinical indication); or iterative reconstruction.
== END ==
PROVIDERS: PCP Family Medicine; Visit Provider Family Medicine
DX: R91.1 Solitary pulmonary nodule (principal); J98.4 Other disorders of lung; E04.1 Nontoxic single thyroid nodule
CPT/HCPCS: 71250

== ENCOUNTER 2022-01-04 15:40 | Outpatient (CLI) | payer MEDICARE, SELFPAY ==
[2022-01-04 15:37] LABS: Anion Gap 4.3 mmol/L (3-11); BUN 16 mg/dL (7-18); CO2 33.7 mmol/L (21.0-32.0); CREATININE 0.8 mg/dL (0.55-1.02); Calcium 9.4 mg/dL (8.5-10.1); Chloride 105 mmol/L (98-107); Glucose 120 mg/dL (74-106); Potassium 3.5 mmol/L (3.5-5.1); Sodium 143 mmol/L (136-145)
== END 2022-01-04 15:41 | disposition home or self-care (01) ==
LOC: LBO 15:42
PROVIDERS: PCP Family Medicine; Visit Provider Family Medicine
DX: Z51.81 Encounter for therapeutic drug level monitoring (principal); E04.1 Nontoxic single thyroid nodule; E88.01 Alpha-1-antitrypsin deficiency; J44.9 Chronic obstructive pulmonary disease, unspecified; Z87.891 Personal history of nicotine dependence; F41.8 Other specified anxiety disorders
CPT/HCPCS: 36415; 80048

== ENCOUNTER → 2022-02-08 03:15 | Outpatient (CLI) | payer MEDICARE, SELFPAY ==
--- NOTE | 2022-02-08 08:15 | DI.US_ITS ---
Exam(s) US THYROID EXAM: US THYROID CLINICAL HISTORY: f/u CT, THYROID NODULE, E04.1. TECHNIQUE: Ultrasound thyroid performed using standard protocol. COMPARISON: No prior ultrasounds for comparison. FINDINGS: RIGHT THYROID LOBE: Measures 1.8 cm AP x 1.1 cm wide x 3.5 cm craniocaudal There is a small benign sub cm cyst in the superior aspect of the right lobe, anteriorly. This measu res 3 millimeters. In the mid aspect of the gland there is the dominant nodule in the right lobe with details as follows : Size: Measures 1.4 x 1.2 x 1.2 cm Composition: Mixed [id number] point Echogenicity: Solid component is isoechoic to surrounding parenchyma-1 point Shape: In the transverse plane it is equal in height and width-0 points Margin: Lobulated-2 points Echogenic Foci: Contains a macro calcification-1 point Total Points for this nodule: 5 ACR Ti-Rads Category: TR4 This nodule can be followed as it is less than 1.5 cm. ISTHMUS: Normal thickness. There are no nodules in the isthmus. LEFT THYROID LOBE: Measures 1.5 cm AP x 1.3 wide x 3.7 cm craniocaudal There is a single nodule in the upper aspect of the left lobe with details as follows: Size: Measures 1.0 x 0.7 x 0.7 cm Composition: Mixed [id number]-[id number]-6 points Echogenicity: Isoechoic-1 points Shape: Taller than wider in the transverse plane-3 points Margin: Smooth-0 points Echogenic Foci: None-0 points Total points for this nodule: 5 ACR Ti-Rads Category: 4 This nodule can be followed as it measures less than 1.5 cm. LYMPH NODES: There is no significant adenopathy. IMPRESSION: 1. Bilateral nodules as described above. These do not require biopsy at this time. 2. Recommend follow-up ultrasound in 1 year, earlier if clinically indicated. 3. There is no significant lymphadenopathy. DATA REPOSITORY:
== END ==
PROVIDERS: PCP Family Medicine; Visit Provider Family Medicine
DX: E04.1 Nontoxic single thyroid nodule (principal)
CPT/HCPCS: 76536

== ENCOUNTER 2024-01-14 11:34 | Emergency (ER) | payer MEDICARE, SELFPAY ==
[2024-01-14 11:39] VITALS: BP 183/82; PULSE 102; RESP 22; TEMP 36.6; O2SAT 96
--- NOTE | 2024-01-14 11:51 | DI.RAD_ITS ---
Exam(s) XR SACROILIAC JOINTS EXAM: XR SACROILIAC JOINTS CLINICAL HISTORY: right SI joint pain, eval for arthritis/pathology. TECHNIQUE: 2D digital imaging was performed. COMPARISON: No exams were available for comparison FINDINGS: 3 views Sacroiliac joints appear unremarkable. No evidence of sacroiliitis. No ankylosis evident. No obvio us fractures. No osseous lesions evident in the sacrum. No hip joint space narrowing. IMPRESSION: No significant radiographic findings in the sacroiliac joints. DATA REPOSITORY: RADIATION DOSE DELIVERED:
--- NOTE | 2024-01-14 11:56 | ED.GENADUL_ITS ---
Discharge Plan Disposition Patient Disposition: Home Condition: Good Discharge Details Chief Complaint: FlankPain Clinical Impression: Sacroiliac joint pain, Acute UTI Primary Care Provider: Parvin Shah ED Provider: Rick Almonte Home Meds and New Rx's Prescriptions: New cephalexin 500 mg capsule 500 mg PO QID 5 Days Qty: 20 0RF estradiol [Estrace] 0.01 % (0.1 mg/gram) cream 1 appful vaginal DAILY Qty: 42.5 0RF Rx Instructions: for 14 days No Action zolpidem 5 mg tablet 5 mg PO HS PRN (Reason: insomnia) Qty: 30 2RF valacyclovir 500 mg tablet 500 mg PO DAILY Qty: 90 3RF pravastatin 10 mg tablet 10 mg PO DAILY Qty: 90 3RF Trelegy Ellipta 100-62.5-25 mcg blister with device See Rx Instructions .ROUTE .COMPLEX Qty: 180 3RF Dose Instruction: USE 1 INHALATION ORALLY DAILY Rx Instructions: USE 1 INHALATION ORALLY DAILY acetaminophen 500 mg tablet 500 mg PO Q6H PRN (Reason: pain) Qty: 60 2RF ibuprofen 600 mg tablet 600 mg PO TID PRN (Reason: pain) Qty: 60 0RF Discharge Instructions Instructions: Urinary Tract Infection, Adult ED, Sacroiliac Joint Pain ED Additional Instructions: At this time you do demonstrate some arthritis in your SI joints, and I suspect this is a component of your symptoms. Please apply the Voltaren gel that we gave you to the area of pain 3-4 times per day. Please continue to take Tylenol at home as needed for pain. Additionally you have mild evidence of urinary tract infection. We have sent the urine for culture as well. Please take the antibiotic Keflex as prescribed. Please also apply the vaginal estrogen daily to help improve local skin and membrane health. This has been sent to your pharmacy on file. If you notice any worsening of your symptoms, or any new symptoms such as vomiting, diarrhea, fever, chills, shortness of breath, chest pain, numbness, weakness, or fainting , please return immediately to the emergency department for reevaluation. Please follow up with your primary care provider as soon as possible for reassessment and reevaluation. As always, it was a pleasure participating in your medical care today. Referrals: Parvin Shah MD [Primary Care Provider] - [facility] General Date/Time Provider Initiated Documentation: 01/14/24 11:35 . [facility] Narrative: This is a pleasant 68-year-old female who is on oxygen secondary to an alpha 1 antitrypsin deficiency, who has COPD, osteoporosis, who presents today for evaluation of right lower back pain. Patient states has been going on for the last 2-1/2 weeks, it is worse when she tries to bend forward and sit up, better when she lies back. It is not constant, but more so present during movements in flexion and extension of the lower back and hip. She denies any falls or trauma. She has had SI joint pain in the past, and feels that this is slightly atypical. She denies fever or chills. She is not on blood thinners. She does admit to having frequent bowel movements. She denies any blood in her stool. No other complaints at this time. No other modifying factors. She has taken Motrin which has slightly improved her symptoms. Patient denies any saddle anesthesia, numbness or tingling in the groin, change in sensation when wiping. Patient denies any change in sensation during sexual intercourse, bowel or bladder incontinence, leakage, or retention. Patient denies any weakness in the lower extremities, atypical falls or imbalance. Related Data Home Medications ?Medication ?Instructions ?Recorded ?Confirmed acetaminophen 500 mg tablet 500 mg PO Q6H PRN pain #60 tabs 03/03/21 01/14/24 ibuprofen 600 mg tablet 600 mg PO TID PRN pain #60 tabs 03/03/21 01/14/24 fluticasone fur. 100 mcg-umeclid See Rx Instructions .Route 05/30/22 01/14/24 62.5 mcg-vilant 25 mcg .COMPLEX #180 grams inhalat.powder (Trelegy Ellipta) pravastatin 10 mg tablet 10 mg PO DAILY #90 tabs 05/30/22 01/14/24 valacyclovir 500 mg tablet 500 mg PO DAILY #90 tabs 05/30/22 01/14/24 zolpidem 5 mg tablet 5 mg PO HS PRN insomnia #30 mg 05/30/22 01/14/24 cephalexin 500 mg capsule 500 mg PO QID 5 days #20 caps 01/14/24 estradiol 0.01% (0.1 mg/gram) 1 appful vaginal DAILY #42.5 grams 01/14/24 vaginal cream (Estrace) Previous Rx's ?Medication ?Instructions ?Recorded acetaminophen 500 mg tablet 500 mg PO Q6H PRN pain #60 tabs 03/03/21 ibuprofen 600 mg tablet 600 mg PO TID PRN pain #60 tabs 03/03/21 fluticasone fur. 100 mcg-umeclid See Rx Instructions .Route 05/30/22 62.5 mcg-vilant 25 mcg .COMPLEX #180 grams inhalat.powder (Trelegy Ellipta) pravastatin 10 mg tablet 10 mg PO DAILY #90 tabs 05/30/22 valacyclovir 500 mg tablet 500 mg PO DAILY #90 tabs 05/30/22 zolpidem 5 mg tablet 5 mg PO HS PRN insomnia #30 mg 05/30/22 cephalexin 500 mg capsule 500 mg PO QID 5 days #20 caps 01/14/24 estradiol 0.01% (0.1 mg/gram) 1 appful vaginal DAILY #42.5 grams 01/14/24 vaginal cream (Estrace) Allergies Allergy/AdvReac Type Severity Reaction Status Date / Time No Known Allergies Allergy Verified 01/14/24 11:44 General Stated Complaint: FlankPain ARIANA: 3 Review of Systems All systems reviewed & are unremarkable except as noted in HPI and below Exam Narrative Exam Narrative: 1.Const: Well-nourished, Well-developed, appearing stated age 2.Eyes: PERRL, no conjunctival injection, and symmetrical lids. 3.ENT: Atraumatic external nose and ears. Moist MM. Neck: Symmetric, trachea midline, No thyromegaly. 4.CVS: +S1/S2, No murmurs or gallops. Peripheral pulses 2+ and equal in all extremities. Brisk capillary refill in all extremities. 5.RESP: Unlabored respiratory effort. Clear to auscultation bilaterally. No wheezes rales or rhonchi 6.GI: Soft, Nontender/Nondistended, No hepatosplenomegaly. No guarding or rebound. 7.MSK: Normocephalic/Atraumatic, Extremities w/o deformity or ttp No cyanosis or clubbing, Normal movement of all extremities No midline tenderness to palpation over the CTLS spine. Normal ROM in flexion, extension, side bend, and rotation. Patient has +5 out of 5 strength in the lower extremities in dorsiflexion and plantarflexion, knee flexion and extension, hip flexion and extension. Normal strength for dorsiflexion and plantar flexion of the great toe bilaterally. There is +2 over 2 dorsalis pedis pulses bilaterally. There is normal sensation to the skin with light touch at the foot, knee, and hip. Normal saddle sensation. Good sensation over the deep sural nerve area bilaterally. Reflexes are +2 over 4 in the patellar reflex bilaterally. +5 out of 5 strength in the medial, ulnar, radial nerve dist ribution bilaterally in the hands as well as intact light touch sensation to these dermatomes on the hands Mild achiness on palpation of the right SI joint. No redness or deformity. 8.Skin: Warm, Dry. No rashes or lesions. 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 Sensation grossly intact, no focal neurologic deficits. 10.Psych: (AAO) x3. Appropriate mood and affect Course Vital Signs Vital signs: Vital Signs Temperature 36.6 C 01/14/24 11:39 Pulse 102 H 01/14/24 11:39 Respiratory Rate 22 01/14/24 11:39 Blood Pressure 183/82 H 01/14/24 11:39 Pulse Oximetry 96 01/14/24 11:39 Temperature 36.6 C 01/14/24 11:39 Pulse 102 H 01/14/24 11:39 Respiratory Rate 22 01/14/24 11:39 Blood Pressure 183/82 H 01/14/24 11:39 Blood Pressure Position Sitting 01/14/24 11:39 Pulse Oximetry 96 01/14/24 11:39 Pain Level 5 01/14/24 11:39 Medical Decision Making This is a pleasant 68-year-old female who is on oxygen secondary to an alpha 1 antitrypsin deficiency, who has COPD, osteoporosis, who presents today for evaluation of right lower back pain. Patient states has been going on for the last 2-1/2 weeks, it is worse when she tries to bend forward and sit up, better when she lies back. It is not constant, but more so present during movements in flexion and extension of the lower back and hip. She denies any falls or trauma. She has had SI joint pain in the past, and feels that this is slightly atypical. She denies fever or chills. She is not on blood thinners. She does admit to having frequent bowel movements. She denies any blood in her stool. No other complaints at this time. No other modifying factors. She has taken Motrin which has slightly improved her symptoms. Patient denies any saddle anesthesia, numbness or tingling in the groin, change in sensation when wiping. Patient denies any change in sensation during sexual intercourse, bowel or bladder incontinence, leakage, or retention. Patient denies any weakness in the lower extremities, atypical falls or imbalance. Physical exam demonstrates well-appearing female, minimal tenderness over the right SI joint. No midline spinal tenderness. No neurologic deficits, normal reflexes are present. Symptoms appear concerning for mild sacroiliitis at the SI joint. Will give Lidoderm patch and get an x-ray for further assessment, will monitor closely and reassess. No evidence of cauda equina syndrome. 1:18 PM X-ray shows no evidence of acute process, joint shows no severe abnormality, some arthritic changes are visualized though. No evidence of tumor or mass. No evidence of obstruction. Patient remains notably stable. Urinalysis does show evidence of trace leuk esterase and 3-5 WBCs, only rare epithelial cells, some bacteria are noted. Symptoms may certainly have a component of mild urinary tract infection. We will treat with Keflex for this for 5 days. Will also prescribe vaginal topical estrogen for improvement of mucous membrane and skin health in that area. Patient otherwise stable for discharge. Will recommend continue Voltaren gel for home use. Recommend continue Tylenol for pain. Discussed red flags for which to return. I have extensively reviewed the treatment plan and discharge instructions with the patient. I have addressed all patient concerns at this time. The patient was made aware of what symptoms to mo nitor for that would warrant a return to the emergency department. Discussed the plan with the patient, they demonstrate verbal understanding and agreement with our assessment and plan at this time. The documentation in this chart was dictated using [employer] dictation software. Please excuse any dictation errors. FINDINGS: Single AP view pelvis No evidence of pelvic nor hip fracture. Bone density is age-appropriate. No osseous lesions evident. IMPRESSION: No acute osseous findings in the pelvis and hips. FINDINGS: 3 views Sacroiliac joints appear unremarkable. No evidence of sacroiliitis. No ankylosis evident. No obvious fractures. No osseous lesions evident in the sacrum. No hip joint space narrowing. IMPRESSION: No significant radiographic findings in the sacroiliac joints. 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) Incomplete rectal prolapse (Chronic) [id number] deficiency (Acute 02/10/14) moderate to severe COPD// PFTs : severe copd and diffusion defect- minimal response to bronchodilator; Phenotype MS Herpes simplex (Acute) lower back/recurrent; daily valacyclovir Hyperlipidemia (Acute 09/01/12) Insomnia (Acute) managed with zolpidem prn Osteoporosis (Acute) declines to use fosamax COPD (chronic obstructive pulmonary disease) (Chronic) Medical History Chronic diarrhea of unknown origin uses imodium for this; History of tobacco use Vertigo (05/24/16) carotid U/S: negative ([facility]) brain mri : normal ([facility]) Squamous cell carcinoma (01/23/16) right lower leg tx [facility] [place] : curettage and electrodessication Depressive disorder Surgical History Status post open reduction and internal fixation (ORIF) of fracture (03/03/21) Fracture of left wrist (01/29/21) S/P Closed Reduction and castin01/31/2021 Status post laparoscopic hysterectomy H/O shoulder surgery (~1979) Family History Mother Essential hypertension Hyperlipidemia Father Essential hypertension Heart disease Hyperlipidemia Depression Sister Depression Sister No problems noted. Brother No problems noted. Son No problems noted. Son No problems noted. Social History Smoking/Tobacco Use Status: Former Tobacco Use Quit Date: 09/24/96 Tobacco: How many years used: 20 Second Hand Exposure: Yes Smoking risk assessment performed?: Yes Alcohol Intake: former Drug use: Never Substance use type: does not use Pets and animals: No Current gender identity: female Duration: 15-30 minutes/day Frequency: decline to answer Christine/Pentecostal: Sikh Special christine needs: No Do you feel safe at home: Yes Do you feel safe in your relationship?: Yes
--- NOTE | 2024-01-14 12:00 | DI.RAD_ITS ---
Exam(s) XR PELVIS AP EXAM: XR PELVIS AP CLINICAL HISTORY: right si joint pain. TECHNIQUE: 2D digital imaging was performed. COMPARISON: CR,XR XR HIP LT COMPLETE AP PELVIS from 01/29/2021 FINDINGS: Single AP view pelvis No evidence of pelvic nor hip fracture. Bone density is age-appropriate. No osseous lesions evident . IMPRESSION: No acute osseous findings in the pelvis and hips. DATA REPOSITORY: RADIATION DOSE DELIVERED:
[2024-01-14] MEDS: Lidocaine 5% Patch 1 PATCH TP (12:08)
[2024-01-14 12:37] VITALS: BP 183/82; PULSE 102; RESP 22; TEMP 36.6; O2SAT 96
[2024-01-14 12:41] LABS: Bilirubin Negative (Negative); Blood Trace-lysed (Negative); Clarity Clear (Clear); Glucose Negative (Negative); Ketones Negative (Negative); Leukocyte Esterase Trace (Negative); Nitrite Negative (Negative); Specific Gravity 1.015 (1.005-1.025); Urobilinogen 0.2 mg/dL (Up to 0.2)
[2024-01-14 12:52] LABS: Bacteria Rare HPF (Negative); C & S Indicated? No; Casts Negative LPF (Negative); Crystals Negative HPF (Negative); Epithelial Cells Rare HPF (Negative); Mucus Negative (Negative); RBC 0-2 HPF (0-2)
[2024-01-14] MEDS: Diclofenac 1% Gel 100 GM TUBE TP (13:05)
== END 2024-01-14 13:24 | disposition home or self-care (01) ==
PROVIDERS: Emergency Provider Student in an Organized Health Care Education/Training Program; PCP Family Medicine
DX: N39.0 Urinary tract infection, site not specified; M54.50 Low back pain, unspecified; M53.3 Sacrococcygeal disorders, not elsewhere classified
CPT/HCPCS: 99284; 72170; 72202; 81003; 81015; 87086; 99283